=== PATIENT | female | born 1965 | race Hispanic/Latino ===

== ENCOUNTER 2017-05-10 13:30 | Emergency (ER) | payer OTHER ==
[2017-05-10] MEDS ORDERED: Sodium Chloride 0.9% 1,000 ML IV ONE (14:19)
[2017-05-10] MEDS ORDERED: Sodium Chloride 0.9% 1,000 ML ONE (14:32)
[2017-05-10 15:02] LABS: CHLORIDE 101 mmol/L (98-107); POTASSIUM 3.6 mmol/L (3.6-5.2); SODIUM 138 mmol/L (132-148)
[2017-05-10 15:04] LABS: ALKALINE PHOSPHATASE 159 U/L (38-126); AST/SGOT 14 U/L (14-36); BILIRUBIN,TOTAL 0.6 mg/dL (0.2-1.3); CARBON DIOXIDE 24 mmol/L (22-30); GFR AFRICAN-AMERICAN > 60
[2017-05-10 15:05] LABS: ALB/GLOB RATIO 1.4 (1.0-2.1); ALT/SGPT 27 U/L (9-52); BLOOD UREA NITROGEN 14 mg/dL (7-17); CALCIUM 8.1 mg/dl (8.6-10.4); GLUCOSE,RANDOM 153 mg/dL (65-105); TOTAL PROTEIN 6.8 g/dL (6.3-8.3)
[2017-05-10 15:09] LABS: BASO % 0.3 % (0.0-2.0); HEMATOCRIT 35.9 % (34.0-47.0); LYMPH # 1.1 K/uL (1.0-4.3); MEAN CELL VOLUME 85.4 fL (81.0-99.0); MEAN CORPUSCULAR HEMOGLOBIN 28.3 pg (27.0-31.0); MEAN CORPUSCULAR HGB CONC 33.2 g/dL (33.0-37.0); MEAN PLATELET VOLUME 10.3 fL (7.2-11.7); MONO # 0.2 K/uL (0.0-0.8); MONO % 2.8 % (0.0-10.0); RED CELL DISTRIBUTION WIDTH 14.3 % (11.5-14.5); WHITE BLOOD COUNT 8.3 K/uL (4.8-10.8)
--- NOTE | 2017-05-10 15:28 | C.PDOC ---
History Of Present Illness 51 yr old female with PMHx of schizophrenia and asthma, presnets to the ER with complaints of epigastric pain, nausea and several episodes of vomiting while at [facility] [employer]. Patient admits to not eating breakfast this morning. Denies fever, chest pain, SOB, diarrhea, dysuria, hematuria, weakness or numbness. Time Seen by Provider: 05/10/17 14:06 Chief Complaint (Nursing): Abdominal Pain History Per: Patient History/Exam Limitations: no limitations Onset/Duration Of Symptoms: Sudden Onset ([employer]OLOG[employer] while at [facility]) Current Symptoms Are (Timing): Still Present Location Of Pain/Discomfort: Epigastric Past Medical History Reviewed: Historical Data, Nursing Documentation, Vital Signs Vital Signs: Last Vital Signs Temp 97.8 F 05/10/17 15:58 Pulse 95 H 05/10/17 15:58 Resp 18 05/10/17 15:58 BP 170/80 H 05/10/17 15:58 Pulse Ox 98 05/10/17 15:58 - Medical History PMH: Asthma, Schizophrenia - [facility] Procedures TETANUS TOXOID ADMINIST (04/16/13) Family History: States: No Known Family Hx - Social History Hx Alcohol Use: No Hx Substance Use: No - Immunization History Hx Tetanus Toxoid Vaccination: No Hx Influenza Vaccination: No Hx Pneumococcal Vaccination: No Review Of Systems Except As Marked, All Systems Reviewed And Found Negative. Constitutional: Negative for: Fever Cardiovascular: Negative for: Chest Pain Respiratory: Negative for: Shortness of Breath Gastrointestinal: Positive for: Nausea, Vomiting (Several episodes), Abdominal Pain (Epigastric). Negative for: Diarrhea Genitourinary: Negative for: Dysuria, Hematuria Neurological: Negative for: Weakness, Numbness Physical Exam - Physical Exam Appears: Non-toxic, In Acute Distress (Mild discomfort) Skin: Warm, Dry, No Rash Head: Atraumatic, Normacephalic Eye(s): bilateral: Normal Inspection, PERRL, EOMI Oral Mucosa: Moist Neck: Normal, Normal ROM, Supple Chest: Symmetrical, No Tenderness Cardiovascular: Rhythm Regular, Other (Mild tachycardic) Respiratory: Normal Breath Sounds, No Rales, No Rhonchi, No Wheezing Gastrointestinal/Abdominal: Soft, Tenderness (Mild epigastric tenderness. ), No Guarding, No Rebound, Other ((-) Crenshaw signs. Mcburney's sign.) ED Course And Treatment - Laboratory Results Result Diagrams: 05/10/17 14:47 05/10/17 14:47 ECG: Interpreted By Me, Viewed By Me ECG Rhythm: Sinus Tachycardia ECG Interpretation: Normal Interpretation Of ECG: Normal axis. No acute ST/T wave changes. Rate From EC (BPM) O2 Sat by Pulse Oximetry: 95 (RA) Progress Note: PLAN: EKG, Lipase, CBC, CMP, HCG, Urinalysis, Zofran IVP, Sodium Chloride IV. Disposition Counseled Patient/Family Regarding: Studies Performed, Diagnosis, Need For Followup, Rx Given - Disposition Referrals: Yenny Bray MD [Staff Provider] - Disposition: HOME/ ROUTINE Disposition Time: 16:45 Condition: STABLE Additional Instructions: FOLLOW UP WITH YOUR DOCTOR IN 1-2 DAYS USE MEDICATIONS DIRECTED RETURN TO ED IF SYMPTOMS WORSEN Prescriptions: Ciprofloxacin [Cipro] 1 tab PO BID #14 tab Famotidine [Pepcid] 20 mg PO BID PRN #15 tab PRN Reason: abdominal Instructions: Acute Nausea and Vomiting (ED), Urinary Tract Infection in Women (ED) Print Language: CITIZ[place] - POA Present On Arrival: None - Clinical Impression Clinical Impression: UTI (urinary tract infection), Nausea, Vomiting, Epigastric abdominal pain - Scribe Statement The provider has reviewed the documentation as recorded by the Law Chu Provider Attestation: All medical record entries made by the Law were at my direction and personally dictated by me. I have reviewed the chart and agree that the record accurately reflects my personal performance of the history, physical exam, medical decision making, and the department course for this patient. I have also personally directed, reviewed, and agree with the discharge instructions and disposition.
[2017-05-10 15:59] VITALS: BP 170/80; PULSE 95; RESP 18; TEMP 97.8
[2017-05-10 16:27] LABS: RBC URINE 21 /hpf (0-3); URINE BILIRUBIN NEGATIVE (NEGATIVE); URINE BLOOD 1+ (NEGATIVE); URINE COLOR Yellow (YELLOW); URINE GLUCOSE (UA) 1+ mg/dL (Normal); URINE KETONE TRACE mg/dL (NEGATIVE); URINE LEUKOCYTE ESTERASE 2+ Leu/uL (Negative); URINE PROTEIN 1+ mg/dL (NEGATIVE); URINE UROBILINOGEN NORMAL mg/dL (0.2-1.0); WBC URINE 68 /hpf (0-5)
[2017-05-10 16:39] VITALS: O2SAT 95
--- NOTE | 2017-05-11 18:29 | CARD ---
APPROVED REPORT EKG Measurement Heart [id number] <Conclusion> Sinus tachycardia Nonspecific T wave abnormality Abnormal ECG
== END 2017-05-10 16:48 | disposition home or self-care (01) ==
LOC: C.ER 13:30
DX: N39.0 Urinary tract infection, site not specified (principal)
CPT/HCPCS: 80053; 81001; 83690; 84703; 85025; 87086; 93005; 96361; 96374; 99285; J2405; J7040

== ENCOUNTER 2017-07-17 06:25 | Day surgery (SDC) | payer OTHER ==
[2017-07-17 06:50] VITALS: BMI 27.0
[2017-07-17] MEDS ORDERED: Lidocaine Hydrochloride 5 ML INJ ONE (07:21)
[2017-07-17] MEDS ORDERED: Propofol 10 mg/ml Inj (20 ML) ONE (07:21)
[2017-07-17 08:59] VITALS: TEMP 97.5
[2017-07-17 10:00] VITALS: BP 155/89; PULSE 107; RESP 15; O2SAT 99
== END 2017-07-17 10:08 | disposition home or self-care (01) ==
LOC: C.ENDO 06:25
PROVIDERS: ATTEND Internal Medicine
DX: R10.13 Epigastric pain (principal); K59.09 Other constipation; K63.5 Polyp of colon; K29.50 Unspecified chronic gastritis without bleeding; K57.30 Diverticulosis of large intestine without perforation or abscess without bleeding; K64.8 Other hemorrhoids
CPT/HCPCS: 43239; 45380; 88305; 88313; 88342; J2704; J3010

== ENCOUNTER 2017-12-13 16:44 | Observation (INO) | payer OTHER ==
[2017-12-13 16:54] VITALS: BMI 24.9
--- NOTE | 2017-12-13 17:00 | C.PDOC ---
History Of Present Illness POSSIBLE CVA ONSET 1549. WITNESSED BY FAMILY, PT WALKING IN [employer] NOTED TO HAVE SUDDEN ONSET LEANING TO RIGHT BUT NO FALL. PT CO R SIDED WEAKNESS BUT NOW IMPROVED COMPARED TO PRIOR. PER EMS, RUE DRIFT 8 SECS EN ROUTE. NO SLURRED SPEECH, AO3. FAMILY STATES SP PSYCH MED DOSE CHANGE 2 WEEKS AGO. SINCE THEN, W INCR FREQ HEADACHES AND "NOT FEELING RIGHT". 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 NO TRAUMA EXAM MILD DIST NONTOXIC HEENT ATRAUM LUNGS CTA B/L NO W/R/R CV RRR ABD NEG EXT ATRAUM AROM WO DIFF NEURO SEE [facility] PSYCH CALM COOPERATIVE NO ACUTE PSYCHOSIS REMAINDER NEG Time Seen by Provider: 12/13/17 16:55 Chief Complaint (Nursing): Weakness/Neurological Deficit History Per: Patient, EMS, Family History/Exam Limitations: no limitations Onset/Duration Of Symptoms: Sudden Onset (1549) Past Medical History Reviewed: Historical Data, Nursing Documentation, Vital Signs Vital Signs: Last Vital Signs Temp 98.4 F 12/13/17 17:28 Pulse 104 H 12/13/17 17:28 Resp 15 12/13/17 17:28 BP 183/104 H 12/13/17 17:28 Pulse Ox 100 12/13/17 17:28 - Medical History PMH: Asthma, Gastritis, HTN, Hypercholesterolemia, Schizophrenia - [facility] Procedures TETANUS TOXOID ADMINIST (04/16/13) Family History: States: No Known Family Hx - Social History Hx Alcohol Use: No Hx Substance Use: No - Immunization History Hx Tetanus Toxoid Vaccination: No Hx Influenza Vaccination: No Hx Pneumococcal Vaccination: No Review Of Systems Except As Marked, All Systems Reviewed And Found Negative. Constitutional: Negative for: Fever Cardiovascular: Negative for: Chest Pain Respiratory: Negative for: Shortness of Breath Gastrointestinal: Negative for: Nausea, Vomiting Physical Exam - Physical Exam Appears: Non-toxic, In Acute Distress (Mild) Skin: Warm, Dry, No Rash Head: Atraumatic, Normacephalic Eye(s): bilateral: Normal Inspection, PERRL, EOMI Oral Mucosa: Moist Lips: Normal Appearing Neck: Normal, Normal ROM, Supple Chest: Symmetrical, No Tenderness Cardiovascular: Rhythm Regular, No Murmur Respiratory: Normal Breath Sounds, No Rales, No Rhonchi, No Stridor, No Wheezing Gastrointestinal/Abdominal: Normal Exam, Soft, No Tenderness, No Guarding, No Rebound Extremity: Normal ROM (w/o difficulty), No Swelling Neurological/Psych: Other (see NIH, calm, cooperative, no acute psychosis) ED Course And Treatment - Laboratory Results Result Diagrams: 12/13/17 17:29 12/13/17 17:29 - CT Scan/US CT - Head Other Rad Studies (CT/US): Read By Radiologist, Radiology Report Reviewed CT/US Interpretation: PROCEDURE: CT HEAD WITHOUT CONTRAST. HISTORY: Code Stroke. COMPARISON: None available. TECHNIQUE: Axial computed tomography images were obtained through the head/brain without intravenous contrast. Radiation dose: Total exam DLP = 1074.40 mGy-cm. This CT exam was performed using one or more of the following dose reduction techniques: Automated exposure control, adjustment of the mA and/or kV according to patient size, and/ or use of iterative reconstruction technique. FINDINGS: HEMORRHAGE: No intracranial hemorrhage. BRAIN: No mass effect or edema. No atrophy or chronic microvascular ischemic changes. VENTRICLES: Unremarkable. No hydrocephalus. CALVARIUM: Unremarkable. PARANASAL SINUSES: Unremarkable as visualized. No significant inflammatory changes. MASTOID AIR CELLS: Unremarkable as visualized. No inflammatory changes. OTHER FINDINGS: None. IMPRESSION: No acute intracranial abnormalities. No significant findings to account for the clinical presentation. __. Code stroke protocol: Study completed 16:59. Radiologist notified 17:02. Results conveyed verbally at 17:12. I discussed findings with the attending physician in the emergency department Dr. Mott. Interpretation finalized and available for review 17:14 NIHSS Stroke Scale - Date/Time Evaluation Performed Date Performed: 12/13/17 Time Performed: 17:13 When Was NIHSS Performed: Code Stroke - How Severe is the Stroke Level of Consciousness: 0=Alert LOC to Questions: 0=Both comments correct LOC to commands: 0=Obeys both correctly Best Gaze: 0=Normal Visual: 0=No visual loss Facial: 0=Normal Motor Arm - Left: 0=No drift Motor Arm - Right: 0=No drift Motor Leg - Left: 0=No drift Motor Leg - Right: 0=No drift Limb Ataxia: 0=Absent Sensory: 0=Normal Best Language: 0=No aphasia Dysarthia: 0=Normal articulation Extinction & Inattention (Neglect): 0=Normal, no object Score: 0 NIHSS Stroke Scale 2 - Date/Time Evaluation Performed Date Performed: 12/13/17 Time Performed: 17:49 When Was NIHSS Performed: Code Stroke Re-evaluation - How Severe is the Stroke Level of Consciousness: 0=Alert LOC to Questions: 0=Both comments correct LOC to commands: 0=Obeys both correctly Best Gaze: 0=Normal Visual: 0=No visual loss Facial: 0=Normal Motor Arm - Left: 0=No drift Motor Arm - Right: 0=No drift Motor Leg - Left: 0=No drift Motor Leg - Right: 0=No drift Limb Ataxia: 0=Absent Sensory: 0=Normal Best Language: 0=No aphasia Dysarthia: 0=Normal articulation Extinction & Inattention (Neglect): 0=Normal, no object Score: 0 Progress - Re-Evaluation Re-evaluation Note: 12/13/17 16:55 D/W DR OLIVERIO BEAR STROKE PRINCIPAL LIBRARIAN AWARE OF ER FINDINGS. NOT A TPA CANDIDATE @ THIS TIME. WILL CONSULT, ASA 12/13/17 17:13 D/W DR HUGGINS NO ACUTE FINDINGS 12/13/17 17:45 D/W DR José Miguel BRAY AWARE OF ER FINDINGS WILL ADMIT - Data Reviewed Data Reviewed: Lab, Diagnostic imaging, EKG, Old records - Critical Care Citical Care: Excluding Proc Time Critical Care Time: 90 minutes - Continuity of Care Discussed patient case with:: Patient Discussed pt. case with railroad design consultant/specialty: Neurology rTPA Inclusion/Exclusion - Refusal of Treatment Patient Refused Treatment: No - Inclusion Criteria for Altepase Patient is 18 years or Older: Yes The Clinical Diagnosis of Ischemic Stroke That is Causing a Potentially Disabling Neurological Deficit: No Time of Onset is Well Established to be Less Than 270 Minute Before Treatment Would Begin: Yes Risk/Benefit Discussed With Patient/Family Member Present: Yes - Exclusion Criteria for Altepase Uncontrolled Hypertension at Time of Treatment (Systolic BP above 185 or Diastolic BP above 110 mmHg): No Active Internal Bleeding: No Known Bleeding Diathesis Including but Not Limited to: Platelets Below 100,000/ mm,PTT Above 40 sec After Heparin Use, Current Use of Oral Anitcoagulant With INR Greater Than 1.7 or PT Greater Than 15 secs: No Evidence of an Intracranial Hemorrhage: No Evidence of Major Acute Infarct With Signs Greater Than 1/3 MCA Territory: No Suspicion of Subarachnoid Hemorrhage on Pretreatment Evaluation Even if CT Head Negative For Hemorrhage: No - Warning to TPA With Conditions Following Conditions Weighed Against Anticipated Benefit: Yes Condition: Stroke Serevity Too Mild, Rapid Improvement Medical Decision Making Medical Decision Making: PLAN: * CT - Head * CXR * EKG * Troponin * CBC * CMP * Aspirin PO Disposition Counseled Patient/Family Regarding: Studies Performed, Diagnosis - Disposition Disposition: HOSPITALIZED Disposition Time: 17:49 Condition: STABLE - POA Present On Arrival: None - Clinical Impression Clinical Impression: TIA (transient ischemic attack) - Scribe Statement The provider has reviewed the documentation as recorded by the Law Chu Provider Attestation: All medical record entries made by the Law were at my direction and personally dictated by me. I have reviewed the chart and agree that the record accurately reflects my personal performance of the history, physical exam, medical decision making, and the department course for this patient. I have also personally directed, reviewed, and agree with the discharge instructions and disposition. Decision To Admit - Pt Status Changed To: Hospital Disposition Of: Observation - . Bed Request Type: Telemetry Admitting Physician: Yenny Bray Patient Diagnosis: TIA (transient ischemic attack)
--- NOTE | 2017-12-13 17:15 | CT ---
PROCEDURE: CT HEAD WITHOUT CONTRAST. HISTORY: Code Stroke COMPARISON: None available. TECHNIQUE: Axial computed tomography images were obtained through the head/brain without intravenous contrast. Radiation dose: Total exam DLP = 1074.40 mGy-cm. This CT exam was performed using one or more of the following dose reduction techniques: Automated exposure control, adjustment of the mA and/or kV according to patient size, and/or use of iterative reconstruction technique. FINDINGS: HEMORRHAGE: No intracranial hemorrhage. BRAIN: No mass effect or edema. No atrophy or chronic microvascular ischemic changes. VENTRICLES: Unremarkable. No hydrocephalus. CALVARIUM: Unremarkable. PARANASAL SINUSES: Unremarkable as visualized. No significant inflammatory changes. MASTOID AIR CELLS: Unremarkable as visualized. No inflammatory changes. OTHER FINDINGS: None. IMPRESSION: No acute intracranial abnormalities. No significant findings to account for the clinical presentation. Code stroke protocol: Study completed 16:59 Radiologist notified 17:02 Results conveyed verbally at 17:12. I discussed findings with the attending physician in the emergency department Dr. Mott. Interpretation finalized and available for review 17:14
[2017-12-13 17:34] LABS: BASO % 0.4 % (0.0-2.0); LYMPH # 1.4 K/uL (1.0-4.3); LYMPH % 21.5 % (20.0-40.0); MEAN CELL VOLUME 87.6 fL (81.0-99.0); MEAN CORPUSCULAR HEMOGLOBIN 29.6 pg (27.0-31.0); MEAN CORPUSCULAR HGB CONC 33.8 g/dL (33.0-37.0); MONO # 0.3 K/uL (0.0-0.8); MONO % 4.7 % (0.0-10.0); NEUT # 4.7 K/uL (1.8-7.0); NEUT % 73.4 % (50.0-75.0); RBC 4.41 Mil/uL (3.80-5.20); WHITE BLOOD COUNT 6.4 K/uL (4.8-10.8)
[2017-12-13 17:46] LABS: ALB/GLOB RATIO 1.4 (1.0-2.1); ALBUMIN 4.2 g/dL (3.5-5.0); ALT/SGPT 28 U/L (9-52); AST/SGOT 21 U/L (14-36); BLOOD UREA NITROGEN 15 mg/dL (7-17); CALCIUM 8.7 mg/dl (8.6-10.4); GFR AFRICAN-AMERICAN > 60; GFR NON-AFRICAN AMERICAN > 60; HDL CHOLESTEROL 61 mg/dL (30-70)
[2017-12-13 17:56] LABS: PROTHROMBIN TIME 11.6 SECONDS (9.7-12.2)
[2017-12-13 17:57] LABS: LDL CHOLESTEROL 136 mg/dL (0-129)
--- NOTE | 2017-12-14 06:35 | HP ---
HISTORY OF PRESENT ILLNESS: This is a 52-year-old white female, who was brought to the Emergency Room with history of near syncope. The patient felt weakness on the right side and almost fell down. The patient denies having any slurred speech. Right-sided weakness present. The patient, in the Emergency Room, has no weakness. Family states that the patient's psych medication dose was changed, and since then she has the headache and not feeling right. REVIEW OF SYSTEMS: Respiratory system: Negative for shortness of breath. Cardiovascular system: Negative for chest pain. Gastrointestinal system: Negative for nausea, vomiting or abdominal pain. Central nervous system: As mentioned above. No urinary complaint. Psychiatrically, the patient has chronic schizophrenia. All other systems are negative. ALLERGIES: THE PATIENT IS ALLERGIC TO CODEINE, EGG AND PENICILLIN. FAMILY HISTORY: No known inherited disease. SOCIAL HISTORY: Nonsmoker, nonalcoholic, no IVDA. MEDICATIONS: The patient is not on any medical medications. PAST MEDICAL HISTORY: History of gastritis, hypercholesterolemia, asthma, and schizophrenia. PHYSICAL EXAMINATION: GENERAL: This is a 52-year-old white female, awake, alert, oriented, comfortable. VITAL SIGNS: Temperature 98.4, pulse 104, respirations 15 per minute, blood pressure 183/104 mmHg, pulse ox is 100% on room air. HEENT: Normal. NECK: JVP is flat. Carotids, no bruits. LUNGS: No rales, no wheezing. HEART: S1, S2 normal. No gallop. No murmur. ABDOMEN: Soft, nontender. No organomegaly. CENTRAL NERVOUS SYSTEM: No focal neurological deficits. No edema of the legs. LABORATORY DATA: Within normal limits. CT scan of the head is normal. IMPRESSION: Transient ischemic attack with right-sided weakness, accelerated hypertension, chronic schizophrenia. PLAN: The patient will be admitted to the floor. We will get neurological evaluation done. We will continue all the medication. Control blood pressure. Other workup as needed. Yenny Bray MD
[2017-12-14 08:29] VITALS: RESP 20
--- NOTE | 2017-12-14 08:38 | RAD ---
Chest x-ray single frontal view History: Code stroke. Comparison: 12/13/2017 Findings: No focal infiltrate or effusion. Small nodular density projecting over the right upper lung zone may represent small nodule and or granuloma versus confluence of shadows with ribs and vessels. Heart size within normal limits. Degenerative changes in the spine with paravertebral osteophytes. Impression: No focal infiltrate or effusion. Small nodular density projecting over the right upper lung zone may represent small nodule and or granuloma versus confluence of shadows with ribs and vessels.
[2017-12-14] MEDS: Enoxaparin 40 mg Syringe SC SCH (10:14)
--- NOTE | 2017-12-14 12:43 | CP.PCM.PN ---
Subjective - Date & Time of Evaluation Date of Evaluation: 12/14/17 Time of Evaluation: 12:41 - Subjective Subjective: condition stable. weak. s/p tia. Objective - Vital Signs/Intake and Output Vital Signs (last 24 hours): Temp Pulse Resp BP Pulse Ox 98.0 F 104 H 20 106/68 96 12/14/17 07:15 12/14/17 10:14 12/14/17 07:15 12/14/17 10:14 12/14/17 07:15 - Medications Medications: Current Medications Amlodipine Besylate (Norvasc) 5 mg PO DAILY [facility] Last Admin: 12/14/17 10:14 Dose: 5 mg Aspirin (Ecotrin) 81 mg PO DAILY [facility] Docusate Sodium (Colace) 100 mg PO TID [facility] Enoxaparin Sodium (Lovenox) 40 mg SC DAILY [facility] Last Admin: 12/14/17 10:14 Dose: 40 mg Pneumococcal Polyvalent Vaccine (Pneumovax 23 Vaccine) 0.5 ml IM .ONCE ONE Stop: 12/16/17 14:01 Rosuvastatin Calcium (Crestor) 20 mg PO HS [facility] - Labs Labs: 12/13/17 17:29 12/13/17 17:29 PT 11.6 SECONDS (9.7-12.2) 12/13/17 17:29 INR 1.0 12/13/17 17:29 APTT 32 SECONDS (21-34) 12/13/17 17:29 - Constitutional Appears: No Acute Distress, Chronically Ill - Eye Exam Eye Exam: PERRL - ENT Exam ENT Exam: Normal Exam - Neck Exam Neck Exam: Full ROM, Normal Inspection. absent: Lymphadenopathy - Respiratory Exam Respiratory Exam: Clear to Ausculation Bilateral, NORMAL BREATHING PATTERN - Cardiovascular Exam Cardiovascular Exam: REGULAR RHYTHM, +S1, +S2. absent: Murmur - GI/Abdominal Exam GI & Abdominal Exam: Soft, Normal Bowel Sounds. absent: Tenderness - Extremities Exam Extremities Exam: Full ROM, Normal Capillary Refill, Normal Inspection. absent : Joint Swelling, Pedal Edema - Back Exam Back Exam: NORMAL INSPECTION - Neurological Exam Neurological Exam: Alert, Awake, CN II-XII Intact, Normal Gait, Oriented x3 Assessment and Plan - Assessment and Plan (Free Text) Assessment: tia. htn. Plan: for neuro w/u. mri.
[2017-12-15 08:22] VITALS: O2SAT 97
--- NOTE | 2017-12-15 08:54 | MRI ---
PROCEDURE: MRI BRAIN WITHOUT CONTRAST HISTORY: TIA COMPARISON: Noncontrast head CT from 12/13/2017 TECHNIQUE: Multiplanar, multisequence MR images of the brain were obtained without intravenous contrast enhancement. FINDINGS: HEMORRHAGE: None DWI: No evidence of an acute or early subacute infarction. BRAIN PARENCHYMA: There are minimal chronic microangiopathic changes. There is no mass, mass effect or abnormal extra-axial fluid collection. There is no territorial infarction. VENTRICLES: There is moderate global parenchymal volume loss, advanced for the patient's age. CRANIUM: There is normal bone marrow signal pattern. ORBITS: Grossly unremarkable. PARANASAL SINUSES/MASTOIDS: Predominantly clear. VASCULAR SYSTEM: There are normal signal voids in the larger intracranial arteries. OTHER FINDINGS: None. IMPRESSION: No acute intracranial abnormality. Minimal chronic microangiopathic changes. Moderate global parenchymal volume loss, advanced for the patient's age.
--- NOTE | 2017-12-15 08:56 | MRI ---
PROCEDURE: Magnetic Resonance Angiography Brain HISTORY: TIA COMPARISON: None available. TECHNIQUE: 3D time of flight MR angiography of the intracranial arteries was performed. Rotating maximum intensity projection images were generated. FINDINGS: INTERNAL CAROTID ARTERIES: Normal flow related signal. The skull base, petrous, cavernous and supraclinoid segments are bilaterally widely patient. ANTERIOR CEREBRAL ARTERIES: Normal flow related signal. A1 and A2 segments are widely patent. Smaller distal branches unremarkable, as visualized. MIDDLE CEREBRAL ARTERIES: Normal flow related signal. M1 and M2 segments are widely patent. Perisylvian branches grossly symmetric. POSTERIOR CIRCULATION: Basilar Artery: Normal flow related signal. Distal Vertebral Arteries: Normal flow related signal. The right vertebral artery is hypoplastic, an anatomic variant. Posterior Cerebral Arteries: Normal flow related signal. Posterior Inferior Cerebellar Arteries: Normal flow related signal. ANEURYSM/ VASCULAR MALFORMATIONS: None. OTHER FINDINGS: None. IMPRESSION: No evidence of occlusion, definite significant stenosis or saccular aneurysm.
--- NOTE | 2017-12-15 09:01 | MRI ---
PROCEDURE: MR Angiography of the neck without contrast HISTORY: TIA COMPARISON: None available. TECHNIQUE: 3D [id number] angiography of the neck was performed. Rotating maximum intensity projection images of the cervical carotid and vertebral arteries were generated. The origins of the common carotid arteries were not visualized, which is a limitation inherent to the non-contrast time of flight technique. FINDINGS: RIGHT CAROTID ARTERIES: Common Carotid Artery: Normal. Carotid Bifurcation: Normal. Internal Carotid Artery:Normal. External Carotid Artery (proximal branches): Normal. LEFT CAROTID ARTERIES: Common Carotid Artery: Normal. Carotid Bifurcation: Normal. Internal Carotid Artery:Normal. External Carotid Artery (proximal branches): Normal. VERTEBRAL ARTERIES: Right Vertebral Artery: Normal. Left Vertebral Artery: Normal. The right vertebral artery is hypoplastic, an anatomic variant. OTHER FINDINGS: None. 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 No evidence of hemodynamically significant stenosis in the internal carotid arteries by NASCET criteria. A preliminary report was provided by [employer] [facility].
[2017-12-15] MEDS: Enoxaparin 40 mg Syringe SC SCH (11:25)
--- NOTE | 2017-12-15 13:03 | CP.PCM.PN ---
Subjective - Date & Time of Evaluation Date of Evaluation: 12/15/17 Time of Evaluation: 13:01 - Subjective Subjective: CONDITION SAME AND STABLE. TIA. BP CONTROLLED. Objective - Vital Signs/Intake and Output Vital Signs (last 24 hours): Temp Pulse Resp BP Pulse Ox 98.0 F 90 20 127/84 97 12/15/17 08:21 12/15/17 11:23 12/15/17 08:21 12/15/17 11:23 12/15/17 08:21 - Medications Medications: Current Medications Amlodipine Besylate (Norvasc) 5 mg PO DAILY [facility] Last Admin: 12/15/17 11:24 Dose: 5 mg Aspirin (Ecotrin) 81 mg PO DAILY [facility] Last Admin: 12/15/17 11:24 Dose: 81 mg Docusate Sodium (Colace) 100 mg PO TID [facility] Last Admin: 12/15/17 11:24 Dose: 100 mg Enoxaparin Sodium (Lovenox) 40 mg SC DAILY [facility] Last Admin: 12/15/17 11:25 Dose: 40 mg Pneumococcal Polyvalent Vaccine (Pneumovax 23 Vaccine) 0.5 ml IM .ONCE ONE Stop: 12/16/17 14:01 Rosuvastatin Calcium (Crestor) 20 mg PO HS [facility] Last Admin: 12/14/17 21:10 Dose: 20 mg - Labs Labs: 12/13/17 17:29 12/13/17 17:29 PT 11.6 SECONDS (9.7-12.2) 12/13/17 17:29 INR 1.0 12/13/17 17:29 APTT 32 SECONDS (21-34) 12/13/17 17:29 - Constitutional Appears: No Acute Distress - Eye Exam Pupil Exam: PERRL - ENT Exam ENT Exam: Normal Exam - Neck Exam Neck Exam: Full ROM, Normal Inspection. absent: Lymphadenopathy - Respiratory Exam Respiratory Exam: Clear to Ausculation Bilateral, NORMAL BREATHING PATTERN - Cardiovascular Exam Cardiovascular Exam: REGULAR RHYTHM, +S1, +S2. absent: Murmur - GI/Abdominal Exam GI & Abdominal Exam: Soft, Normal Bowel Sounds. absent: Tenderness - Extremities Exam Extremities Exam: Full ROM, Normal Capillary Refill, Normal Inspection. absent : Joint Swelling, Pedal Edema - Back Exam Back Exam: NORMAL INSPECTION - Neurological Exam Neurological Exam: Alert, Awake, CN II-XII Intact, Normal Gait, Oriented x3 Assessment and Plan - Assessment and Plan (Free Text) Assessment: TIA HTN. Plan: MRAHEAD, MRA NECK AND MRI BRAIN GROSSLY WNL. DISCUSS WITH NEUROLOGY FOR POSSIBLE D/C. PT OUT PT.
--- NOTE | 2017-12-15 13:11 | PCM.PSYCH ---
Initial Psychiatric Evaluation - Initial Psychiatric Evaluation Type of Admission: Voluntary Legal Status: Capacity Chief Complaint (in patient's own words): "I have schizophrenia and my medications were recently changed " History of Present Illness and Precipitating Events: Psych consult: Hx of Schizophrenia/recent med change The pt is seen, chart reviewed, case discussed with staff. Patient is a 52 year old female who we were consulted for. She is a with 2 daughters. She is currently living with her eldest daughter. She has a history of schizophrenia that is currently well controlled with current medications. Patient states she has regular follow up with a psychiatrist and she attends a day program at [facility]. She recently saw him to adjust her Haldol dose from 10mg to 20mg as she began having auditory hallucinations again. She currently denies any hallucinations, paranoia , depression, anxiety, S/I. She is also on Clozapine 500 mg which she will resume. Of note, health science writer called her program with her permission and learned that she had not been on haldol since last summer as clozapine has been started. She also takes cogentin. She denies using drugs, alcohol, or tobacco products. Psych Hx: Schizophrenia, admissions in the past, no jerzy attempt PMH: Asthma, Hyperlipidemia, HTN Family Psych Hx: Daughter has schizophrenia Current Medications: Active Medications Generic Name Dose Route Start Last Admin Trade Name Judy PRN Reason Stop Dose Admin Amlodipine Besylate 5 mg 12/14/17 10:00 12/15/17 11:24 Norvasc PO 5 mg DAILY ALYSSIA Administration Aspirin 81 mg 12/14/17 12:45 12/15/17 11:24 Ecotrin PO 81 mg DAILY ALYSSIA Administration Docusate Sodium 100 mg 12/14/17 14:00 12/15/17 11:24 Colace PO 100 mg TID ALYSSIA Administration Enoxaparin Sodium 40 mg 12/14/17 10:00 12/15/17 11:25 Lovenox SC 40 mg DAILY ALYSSIA Administration Pneumococcal Polyvalent Vaccine 0.5 ml 12/16/17 14:00 Pneumovax 23 Vaccine IM 12/16/17 14:01 .ONCE ONE Rosuvastatin Calcium 20 mg 12/14/17 22:00 12/14/17 21:10 Crestor PO 20 mg HS ALYSSIA Administration Past Psychiatric History - Past Psychiatric History Previous Treatment History: Inpatient Pertinent Medical Hx (Current Medical&Sleep Prob, Allergies): Allergies Allergy/AdvReac Type Severity Reaction Status Date / Time codeine Allergy VOMITING Unverified 12/14/17 08:18 EGG AdvReac Severe VOMITING Unverified 12/14/17 02:18 Penicillins AdvReac Severe DIARRHEA Unverified 12/14/17 08:18 Clozapine [Fazaclo] 5 tab PO HS 06/23/16 FLUoxetine [Fluoxetine HCl] 20 mg PO QAM 06/23/16 Albuterol HFA [Ventolin HFA 90 mcg/actuation (8 g)] 2 puff IH [id number] PRN Benztropine [Benztropine Mesylate] 1 mg PO QAM 08/15/16 Haloperidol [Haldol] 3 tab PO HS 08/15/16 Atorvastatin [Lipitor] 1 tab PO DAILY 07/17/17 Losartan/Hydrochlorothiazide [Losartan-Hctz 50-12.5 mg Tab] 1 tab PO DAILY 07/17 Omeprazole 1 tab PO DAILY 07/17/17 Ondansetron [Zofran Tab] 1 tab PO PRN PRN 07/17/17 Ranitidine HCl 1 tab PO BID 07/17/17 Review of Systems - Review of Systems All systems: reviewed and no additional remarkable complaints except - Neurological Neurological: UNREMARKABLE - Psychiatric Psychiatric: Anxiety. absent: Auditory Hallucinations, Depression, Hallucinations, Homicidal Ideation, Paranoia, Suicidal Ideation, Visual Hallucinations Mental Status Examination - Personal Presentation Personal Presentation: Looks stated age (somewhat oddly-related.) - Affect Affect: Blunted - Motor Activity Motor Activity: Calm - Reliability in Providing Information Reliability in Providing Information: Good - Speech Speech: Coherent (but slowed and paused.) - Mood Mood: Neutral - Formal Thought Process Formal Thought Process: No Impairment - Cognitive Functions Orientation: Person, Place, Situation, Time Sensorium: Alert (but slow in responses and moves. ) Attention/Concentration: Easily distracted Abstract Thinking: [place] Estimate of Intelligence: Below average (likely due to chronic schizophrenia, not congenital) Judgement: Intact, as evidence by: Insight regarding need for hospitalization Memory: Recent intact, as evidence by: Ability to recall events of the day, Remote impaired as evidenced by: Inability to recall historical events - Risk Risk: Diminished functioning - Strength & Assets Inventory Strength & Assets Inventory: Family support, Cooperative - Limitations Limitations: Other DSM 5 DX - DSM 5 DSM 5 Diagnosis: Schizophrenia-Chronic - Recommended/Plan of Treatment Treatment Recommendations and Plan of Treatment: Continue Clozapine 500mg/d and cogentin 3 mg/d and prozac 20 mg/d Individual therapy within day program Psychoeducation and support given Encourage compliance with meds (she has a history of irregular use) and after care Encourage f/u with outpatient program Teach healthy lifestyle methods, i.e. diet, exercise, meditation 34min
--- NOTE | 2017-12-15 15:10 | CP.PCM.PN ---
Subjective - Date & Time of Evaluation Date of Evaluation: 12/15/17 Time of Evaluation: 15:10 - Subjective Subjective: PATIENT WAS ADMITTED FOR TIA; LAY IN BED AAOX3 DENIES ANY HEADACHE DIZZINESS, CHEST PAIN NAUSEA OR VOMITING; NO SIGNOF DISTRESS NOTED Objective - Vital Signs/Intake and Output Vital Signs (last 24 hours): Temp Pulse Resp BP Pulse Ox 98.0 F 100 H 20 127/84 97 12/15/17 08:21 12/15/17 12:00 12/15/17 08:21 12/15/17 11:23 12/15/17 08:21 - Medications Medications: Current Medications Amlodipine Besylate (Norvasc) 5 mg PO DAILY [facility] Last Admin: 12/15/17 11:24 Dose: 5 mg Aspirin (Ecotrin) 81 mg PO DAILY [facility] Last Admin: 12/15/17 11:24 Dose: 81 mg Docusate Sodium (Colace) 100 mg PO TID [facility] Last Admin: 12/15/17 13:32 Dose: 100 mg Enoxaparin Sodium (Lovenox) 40 mg SC DAILY [facility] Last Admin: 12/15/17 11:25 Dose: 40 mg Pneumococcal Polyvalent Vaccine (Pneumovax 23 Vaccine) 0.5 ml IM .ONCE ONE Stop: 12/16/17 14:01 Rosuvastatin Calcium (Crestor) 20 mg PO [facility] Last Admin: 12/14/17 21:10 Dose: 20 mg - Labs Labs: 12/13/17 17:29 12/13/17 17:29 PT 11.6 SECONDS (9.7-12.2) 12/13/17 17:29 INR 1.0 12/13/17 17:29 APTT 32 SECONDS (21-34) 12/13/17 17:29 Assessment and Plan - Assessment and Plan (Free Text) Assessment: PATIENT IS SEEN AND EXAMINED AT THE BEDSIDE LUNG SOUND CLEAR AND PT EVAL RECOMMEND HOME PT DUE TO 1 SIDE WEAKNESS NOTED WHEN PATIENT AMBULATE STROKE EDUCATION PROVIDED PER NEURO DR ROSENBERG, PATIENT WILL BE DC ON ASPIRIN FOR NOW DISCUSS WITH DR José Miguel GOMES WHO AGREE WITH THE PLAN FOLLOW UP WITH DR José Miguel GOMES IN 1-2 WEEK AT HIS OFFICE ---CALL FOR APPOINTMENT FOLLOW UP WITH YOUR PSYCHIATRIST OUT PATIENT ---CALL TO MAKE APPOINTMENT CONTINUE ALL YOUR HOME MEDICATION DIRECTED ACTIVITY DIRECTED PHYSICAL THERAPY 3-5 TIMES PER WEEK FOR AT LEAST 2 WEEKS NEW PRESCRIPTION GIVEN : ASPIRIN 81 MG BY MOUTH DAILY COLACE 100 MG BY MOUTH THREE TIMES A DAY FOR CONSTIPATION CALL DR José Miguel GOMES OR GO TO THE EMERGENCY IF SYMPTOMS RETURN OR WORSENING DISCUSS WITH PATIENT WHO AGREE AND VERBALIZED UNDERSTANDING
--- NOTE | 2017-12-15 15:19 | CP.PCM.CON ---
History of Present Illness - History of Present Illness History of Present Illness: Mrs. Jewell is a 52-year-old woman with a past medical history of HTN, HLD, who was shopping with her daughter and sister, when she felt unstable and started to lean toward the right. She was helped up by several people and did not fall or lose consciousness. She states that this has never happened to her before. According to the home meds, the patient is on Haldol and Clozapine with some changes in the medications recently. MRI brain and MRA of the head/neck were essentially normal. Review of Systems - Review of Systems All systems: reviewed and no additional remarkable complaints except Past Patient History - Infectious Disease Hx of Infectious Diseases: None - Past Medical History & Family History Past Medical History?: Yes - Past Social History Smoking Status: Never Smoked - CARDIAC Hx Hypercholesterolemia: Yes Hx Hypertension: Yes - PULMONARY Hx Chronic Obstructive Pulmonary Disease (COPD): Yes (ASTHMA) - NEUROLOGICAL Hx Neurological Disorder: No - HEENT Hx HEENT Problems: No - RENAL Hx Chronic Kidney Disease: No - ENDOCRINE/METABOLIC Hx Endocrine Disorders: No - HEMATOLOGICAL/ONCOLOGICAL Hx Blood Disorders: No - INTEGUMENTARY Hx Dermatological Problems: No - MUSCULOSKELETAL/RHEUMATOLOGICAL Hx Arthritis: Yes (BACK) - GASTROINTESTINAL Hx Gastritis: Yes - GENITOURINARY/GYNECOLOGICAL Hx Genitourinary Disorders: No - PSYCHIATRIC Hx Schizophrenia: Yes Hx Substance Use: No - SURGICAL HISTORY Hx Surgeries: Yes Hx Section: Yes (x2) - ANESTHESIA Hx Anesthesia: Yes Hx Anesthesia Reactions: No Hx Malignant Hyperthermia: No Meds Home Medications: Home Medication List Medication Instructions Recorded Confirmed Type Aspirin [Ecotrin] 81 mg PO DAILY #30 tabec 12/15/17 Rx Docusate [Colace] 100 mg PO TID #90 cap 12/15/17 Rx Allergies/Adverse Reactions: Allergies Allergy/AdvReac Type Severity Reaction Status Date / Time codeine Allergy VOMITING Unverified 12/14/17 08:18 EGG AdvReac Severe VOMITING Unverified 12/14/17 02:18 Penicillins AdvReac Severe DIARRHEA Unverified 12/14/17 08:18 - Medications Medications: Current Medications Amlodipine Besylate (Norvasc) 5 mg PO DAILY [facility] Last Admin: 12/15/17 11:24 Dose: 5 mg Aspirin (Ecotrin) 81 mg PO DAILY [facility] Last Admin: 12/15/17 11:24 Dose: 81 mg Docusate Sodium (Colace) 100 mg PO TID [facility] Last Admin: 12/15/17 13:32 Dose: 100 mg Enoxaparin Sodium (Lovenox) 40 mg SC DAILY [facility] Last Admin: 12/15/17 11:25 Dose: 40 mg Pneumococcal Polyvalent Vaccine (Pneumovax 23 Vaccine) 0.5 ml IM .ONCE ONE Stop: 12/16/17 14:01 Rosuvastatin Calcium (Crestor) 20 mg PO HS [facility] Last Admin: 12/14/17 21:10 Dose: 20 mg Physical Exam - Constitutional Appears: Well - Head Exam Head Exam: ATRAUMATIC, NORMAL INSPECTION, NORMOCEPHALIC - Eye Exam Eye Exam: EOMI, Normal appearance, PERRL - ENT Exam ENT Exam: Mucous Membranes Moist, Normal Exam - Neck Exam Neck exam: Positive for: Normal Inspection - Respiratory Exam Respiratory Exam: Clear to Auscultation Bilateral, NORMAL BREATHING PATTERN - Cardiovascular Exam Cardiovascular Exam: REGULAR RHYTHM, +S1, +S2 - Rectal Exam Rectal Exam: Deferred - Extremities Exam Extremities exam: Positive for: normal inspection - Back Exam Back exam: NORMAL INSPECTION - Neurological Exam Neurological exam: Alert, CN II-XII Intact, Normal Gait, Oriented x3, Reflexes Normal - Psychiatric Exam Psychiatric exam: Normal Affect, Normal Mood Results - Vital Signs Recent Vital Signs: Last Vital Signs Temp 98.0 F 12/15/17 08:21 Pulse 100 H 12/15/17 12:00 Resp 20 12/15/17 08:21 BP 127/84 12/15/17 11:23 Pulse Ox 97 12/15/17 08:21 - Labs Result Diagrams: 12/13/17 17:29 12/13/17 17:29 Labs: Laboratory Results - last 24 hr 12/14/17 12/14/17 12/15/17 16:38 21:00 11:16 POC Glucose (mg/dL) 130 H 122 H 85 Assessment & Plan (1) TIA (transient ischemic attack) Assessment and Plan: This could have also been caused due to changes in medications. Work-up was negative for major underlying causes for stroke. I recommend the followin. Telemetry 2. PT/OT eval 3. Aspirin 81 mg daily, and Crestor 20 mg daily for stroke prevention 4. Hydration with water 2-3 liters daily 5. Smoking cessation 6. Follow up with outpatient for risk factor management Thank you. Status: Acute Priority: High
[2017-12-15 15:46] VITALS: BP 117/75; PULSE 105; TEMP 97.8
[2017-12-15] MEDS ORDERED: Pneumococcal 23-Valent Vaccine IM ONE (16:00)
--- NOTE | 2017-12-15 23:14 | CARD ---
APPROVED REPORT EXAM: Two-dimensional and M-mode echocardiogram with Doppler and color Doppler. Other Information Quality : GoodRhythm : INDICATION CVA/TIA RISK FACTORS Hypertension Hyperlipidemia 2D DIMENSIONS IVSd0.9 (0.7-1.1cm)LVDd4.4 (3.9-5.9cm) PWd0.9 (0.7-1.1cm)LVDs2.5 (2.5-4.0cm) FS (%) 44.2 %LVEF (%)75.6 (>50%) M-Mode DIMENSIONS Left Atrium (MM)3.13 (2.5-4.0cm)Aortic Root2.66 (2.2-3.7cm) Aortic Cusp Exc.1.70 (1.5-2.0cm) Mitral Valve MV E Uywoxpkv79.3cm/sMV A Iynemucb758.9cm/sE/A ratio0.4 TDI E/Lateral E'0.0E/Medial E'0.0 LEFT VENTRICLE The left ventricle is normal size. There is normal left ventricular wall thickness. Left ventricle systolic function is mildly impaired. The Ejection Fraction is 50-55%. There is global hypokinesis of the left ventricle. Transmitral Doppler flow pattern is Grade I-abnormal relaxation pattern. There is no ventricular septal defect visualized. RIGHT VENTRICLE The right ventricle is normal size. The right ventricular systolic function is normal. ATRIA The left atrium is mildly dilated. The right atrium size is normal. AORTIC VALVE The aortic valve is mildly sclerotic. The aortic valve is tri-cuspid. No aortic regurgitation is present. There is no aortic valvular stenosis. MITRAL VALVE The mitral valve is normal in structure. There is no evidence of mitral valve prolapse. There is no mitral valve regurgitation noted. TRICUSPID VALVE The tricuspid valve is normal in structure. There is trace tricuspid regurgitation. Right ventricular systolic pressure is estimated at less than 30 mmHg. There is no pulmonary hypertension. PULMONIC VALVE The pulmonary valve is normal in structure. There is trace pulmonic valvular regurgitation. GREAT VESSELS The aortic root is normal in size. The ascending aorta is normal in size. The IVC is normal in size and collapses >50% with inspiration. PERICARDIAL EFFUSION There is no pericardial effusion. <Conclusion> Left ventricle systolic function is mildly impaired. The Ejection Fraction is 50-55%. There is global hypokinesis of the left ventricle. Transmitral Doppler flow pattern is Grade I-abnormal relaxation pattern.
[2017-12-16] MEDS ORDERED: Pneumococcal 23-Valent Vaccine IM ONE (14:00)
== END 2017-12-15 16:53 | disposition home or self-care (01) ==
LOC: C.ER 16:44 → C.9E 17:50 → C.5S 23:16
PROVIDERS: ADMIT Internal Medicine; ATTEND Internal Medicine
DX: R53.1 Weakness (principal); I10 Essential (primary) hypertension; K59.00 Constipation, unspecified; Z86.73 Personal history of transient ischemic attack (TIA), and cerebral infarction without residual deficits; E78.5 Hyperlipidemia, unspecified; F20.9 Schizophrenia, unspecified
CPT/HCPCS: 36415; 70450; 70544; 70547; 70551; 71045; 80053; 80061; 82948; 83036; 84484; 85025; 85610; 85651; 85730; 86140; 86850; 86900; 90471; 90732; 93306; 97116; 97162; 97166; 97530; 99285; G0378; G8978; G8979; G8987; G8988; J1650; J2060

== ENCOUNTER 2019-01-03 12:48 | Inpatient (IN) | payer OTHER ==
[2019-01-03 12:51] VITALS: BMI 22.4
[2019-01-03] MEDS ORDERED: Iodixanol 320 MG/ML 100 ML BOTTLE IV ONE (12:58)
--- NOTE | 2019-01-03 13:01 | C.PDOC ---
History Of Present Illness 53 year old female with PMHx of HTN, HLD, COPD, brought in by BLS for evaluation of possible stroke. Per EMS, they were called after the patient fell and patient was noted to have right-sided facial droop and was leaning toward the right at that time. On arrival patient is AAOx3, responding appropriately to questions. States she noticed her speech was slurred and her right arm began feeling weak around 11:00pm last night, upon returning home from a green party. She denies any visual loss, numbness, lower extremity weakness, chest pain, SOB, or dizziness. Of note, patient has a history of stroke 1 year ago per EMS. Patient was seen here on 12/13/18 for right-sided weakness and admitted for TIA. PMD- V Asa Time Seen by Provider: 01/03/19 12:50 Chief Complaint (Nursing): Weakness/Neurological Deficit History Per: Patient History/Exam Limitations: no limitations Onset/Duration Of Symptoms: Hrs (14) Current Symptoms Are (Timing): Still Present Seizure Or Post-ictal Symptoms: None Fall Associated With With Symptoms: Yes Additional History Per: EMS Past Medical History Reviewed: Historical Data, Nursing Documentation, Vital Signs Vital Signs: Last Vital Signs Temp 98.3 F 01/03/19 12:53 Pulse 106 H 01/03/19 12:53 Resp 18 01/03/19 12:53 BP 148/91 H 01/03/19 12:53 Pulse Ox 97 01/03/19 12:53 - Medical History PMH: Arthritis (BACK), Asthma, COPD (ASTHMA), Gastritis, HTN, Hypercholesterolemia, Schizophrenia, TIA (12/03/17) Denies: Chronic Kidney Disease Surgical History: - [facility] Procedures TETANUS TOXOID ADMINIST (04/16/13) Family History: States: Unknown Family Hx - Social History Hx Alcohol Use: No Hx Substance Use: No - Immunization History Hx Tetanus Toxoid Vaccination: No Hx Influenza Vaccination: No Hx Pneumococcal Vaccination: No Review Of Systems Except As Marked, All Systems Reviewed And Found Negative. Constitutional: Negative for: Fever, Chills Eyes: Negative for: Vision Change ENT: Negative for: Nose Congestion, Throat Pain Cardiovascular: Negative for: Chest Pain Respiratory: Negative for: Shortness of Breath Gastrointestinal: Negative for: Nausea, Vomiting, Diarrhea Musculoskeletal: Negative for: Arm Pain, Leg Pain Neurological: Positive for: Weakness (right upper extremity weakness), Change in Speech (slurred), Other (Right facial droop). Negative for: Numbness, Confusion, Altered Mental Status, Dizziness Physical Exam - Physical Exam Appears: Non-toxic, No Acute Distress Skin: Normal Color, Warm, Dry Head: Atraumatic, Normacephalic Eye(s): bilateral: Normal Inspection, PERRL, EOMI Oral Mucosa: Moist Neck: Normal ROM Chest: Symmetrical Cardiovascular: Rhythm Regular, No Murmur Respiratory: Normal Breath Sounds, No Rales, No Rhonchi, No Wheezing Gastrointestinal/Abdominal: Soft, No Tenderness, No Distention Extremity: Right: Other (Right upper extremity pronator drift), Bilateral: Atraumatic, Normal Color And Temperature Pulses: Left Dorsalis Pedis: Normal, Right Dorsalis Pedis: Normal Neurological/Psych: Oriented x3, Normal Cranial Nerves, Other (Slurred speech) Other Neurological Findings: Facial Palsy (right facial droop) Extremity: Left: No Drift ED Course And Treatment - Laboratory Results Result Diagrams: 01/03/19 13:59 01/03/19 13:59 O2 Sat by Pulse Oximetry: 97 (RA) Pulse Ox Interpretation: Normal - CT Scan/US CT Head Other Rad Studies (CT/US): Read By Radiologist, Radiology Report Reviewed CT/US Interpretation: Accession No. : [id number]. Patient Name / ID : JANINA QUINTANA / [id number]. Exam Date : 01/03/2019 13:11:27 ( Approved ). Study Comment : Sex / Age : F / 53Y. Creator : Stephanie Ron. Dictator : Jay Jay Platt MD. Home Health Care Physician : Trust Advisor : Jay Jay Platt MD. Approver2 : Report Date : 01/03/2019 13:20:58. My Comment : . Date of service: 01/03/2019. PROCEDURE: CT HEAD WITHOUT CONTRAST. HISTORY: Code Stroke. COMPARISON: 12/13/2017. TECHNIQUE: Axial computed tomography images were obtained through the head/brain without intravenous contrast. Radiation dose: Total exam DLP = 1113.71 mGy-cm. This CT exam was performed using one or more of the following dose reduction techniques: Automated exposure control, adjustment of the mA and/or kV according to patient size, and/or use of iterative reconstruction technique. FINDINGS: HEMORRHAGE: No intracranial hemorrhage. BRAIN: No mass effect or edema. No atrophy or chronic microvascular ischemic changes. VENTRICLES: Unremarkable. No hydrocephalus. CALVARIUM: Unremarkable. PARANASAL SINUSES: Unremarkable as visualized. No significant inflammatory changes. MASTOID AIR CELLS: Unremarkable as visualized. No inflammatory changes. OTHER FINDINGS: None. IMPRESSION: Normal CT of the Head. No intracranial hemorrhage. No evidence of acute infarct. The findings in this examination were discussed by telephone with Dr. Talavera at 1:25 p.m. on 01/03/2019. NIHSS Stroke Scale 2 - Date/Time Evaluation Performed Date Performed: 01/03/19 Time Performed: 12:50 When Was NIHSS Performed: Baseline - How Severe is the Stroke Level of Consciousness: 0=Alert LOC to Questions: 0=Both comments correct LOC to commands: 0=Obeys both correctly Best Gaze: 0=Normal Visual: 0=No visual loss Facial: 1=Minor asymmetry Motor Arm - Left: 0=No drift Motor Arm - Right: 1=Drift noted before 10 sec Motor Leg - Left: 0=No drift Motor Leg - Right: 0=No drift Limb Ataxia: 0=Absent Sensory: 0=Normal Best Language: 0=No aphasia Dysarthia: 1=Mild to moderate slurring Extinction & Inattention (Neglect): 0=Normal, no object Score: 3 Medical Decision Making Medical Decision Makin:51 Code Stroke initiated, orders placed. Initial Plan: --CT Head --CTA Head/Neck --EKG --Chest x-ray --CMP, CBC, lipids, trop, coags --Pending stroke team consult Records reviewed: Patient was seen in the ED on 12/13/18 for complaints of right-sided weakness and leaning to the right. CT was negative and patient was admitted for TIA. MRI brain and MRA of the head/neck were essentially normal. Patient was then discharged home on 12/15 with plan for physical therapy, and started on 81mg aspirin daily. Progress/Updates: 13:25 Received call from radiology, CT Head is negative. Case discussed with Dr. Lundberg, agreed to manage patient medically. She will come to evaluate patient in the ED. 13:43 Dr. Lundberg evaluated patient at bedside. NIH 0. Recommends patient be given aspirin and admit to PMD. Patient's PMD is Dr. Yenny Bray. Attempted call through doctor's office, who notes Dr. José Miguel Bray is out of town, and his admissions are currently covered by Dr. Montoya. Paged Dr. Combs, who states he does not admit. Will admit patient to medicine on-call, Dr. Shobha Bray. 14:[address] Bray, patient accepts admission. Disposition Discussed With Dr.: Dary Bray - Disposition Disposition: HOSPITALIZED Disposition Time: 14:35 Condition: GUARDED - POA Present On Arrival: None - Clinical Impression Clinical Impression: TIA (transient ischemic attack) - Scribe Statement The provider has reviewed the documentation as recorded by the Law Garcia Provider Attestation: All medical record entries made by the Clayibe were at my direction and personally dictated by me. I have reviewed the chart and agree that the record accurately reflects my personal performance of the history, physical exam, medical decision making, and the department course for this patient. I have also personally directed, reviewed, and agree with the discharge instructions and disposition. Decision To Admit - Pt Status Changed To: Hospital Disposition Of: Observation - . Bed Request Type: Telemetry Admitting Physician: Dary Bray Patient Diagnosis: TIA (transient ischemic attack)
--- NOTE | 2019-01-03 13:30 | CT ---
Date of service: 01/03/2019 PROCEDURE: CT HEAD WITHOUT CONTRAST. HISTORY: Code Stroke COMPARISON: 12/13/2017 TECHNIQUE: Axial computed tomography images were obtained through the head/brain without intravenous contrast. Radiation dose: Total exam DLP = 1113.71 mGy-cm. This CT exam was performed using one or more of the following dose reduction techniques: Automated exposure control, adjustment of the mA and/or kV according to patient size, and/or use of iterative reconstruction technique. FINDINGS: HEMORRHAGE: No intracranial hemorrhage. BRAIN: No mass effect or edema. No atrophy or chronic microvascular ischemic changes. VENTRICLES: Unremarkable. No hydrocephalus. CALVARIUM: Unremarkable. PARANASAL SINUSES: Unremarkable as visualized. No significant inflammatory changes. MASTOID AIR CELLS: Unremarkable as visualized. No inflammatory changes. OTHER FINDINGS: None. IMPRESSION: Normal CT of the Head. No intracranial hemorrhage. No evidence of acute infarct. The findings in this examination were discussed by telephone with Dr. Talavera at 1:25 p.m. on 01/03/2019.
--- NOTE | 2019-01-03 13:55 | CP.PCM.CON ---
History of Present Illness - History of Present Illness History of Present Illness: Neurology Consult Note for Dr. Lundberg HPI: Patient is a 53 year old female with history of hypertension, asthma, hyperlipidemia who states she was at her program today when she felt her right side felt weak and she fell on her right side landing on her buttocks earlier today. She states she recently had a stroke a year ago, and she was recently seen here a few weeks ago for right sided weakness and admitted for TIA. She denies changes in vision, hearing, numbness, tingling, chest pain, shortness of breath, nausea, vomiting. She states she wears dentures usually, but forgot them at home. PMH: hypertension, asthma, hyperlipidemia, stroke PSH: C sections x2 Allergies: PCN Social hx: lives with daughter. denies history of tobacco, alcohol or drug use. Used to work at [employer]. Uses a walker. Wears dentures. Review of Systems - Constitutional Constitutional: absent: Chills, Fever - EENT Eyes: absent: Blurred Vision, Change in Vision Ears: absent: Decreased Hearing Nose/Mouth/Throat: absent: Sore Throat - Cardiovascular Cardiovascular: absent: Chest Pain, Dyspnea - Respiratory Respiratory: absent: Cough, Dyspnea - Gastrointestinal Gastrointestinal: absent: Abdominal Pain, Nausea, Vomiting - Neurological Neurological: absent: Abnormal Hearing, Abnormal Movements, Abnormal Speech, Confusion, Convulsions, Dizziness, Focal Weakness, Headaches Past Patient History - Infectious Disease Hx of Infectious Diseases: None - Past Medical History & Family History Past Medical History?: Yes - Past Social History Smoking Status: Never Smoked - CARDIAC Hx Hypercholesterolemia: Yes Hx Hypertension: Yes - PULMONARY Hx Asthma: Yes Hx Chronic Obstructive Pulmonary Disease (COPD): Yes (ASTHMA) - NEUROLOGICAL Hx Transient Ischemic Attacks (TIA): Yes (12/03/17) - HEENT Hx HEENT Problems: No - RENAL Hx Chronic Kidney Disease: No - ENDOCRINE/METABOLIC Hx Endocrine Disorders: No - HEMATOLOGICAL/ONCOLOGICAL Hx Blood Disorders: No - INTEGUMENTARY Hx Dermatological Problems: No - MUSCULOSKELETAL/RHEUMATOLOGICAL Hx Arthritis: Yes (BACK) - GASTROINTESTINAL Hx Gastritis: Yes - GENITOURINARY/GYNECOLOGICAL Hx Genitourinary Disorders: No - PSYCHIATRIC Hx Schizophrenia: Yes Hx Substance Use: No - SURGICAL HISTORY Hx Surgeries: Yes Hx Section: Yes (x2) - ANESTHESIA Hx Anesthesia: Yes Hx Anesthesia Reactions: No Hx Malignant Hyperthermia: No Meds Allergies/Adverse Reactions: Allergies Allergy/AdvReac Type Severity Reaction Status Date / Time codeine Allergy VOMITING Verified 01/03/19 13:00 tomato Allergy Verified 01/03/19 13:00 watermelon Allergy Verified 01/03/19 13:00 EGG AdvReac Severe VOMITING Verified 01/03/19 13:00 Penicillins AdvReac Severe DIARRHEA Verified 01/03/19 13:00 chocolate Allergy Uncoded 01/03/19 13:00 - Medications Medications: Current Medications Aspirin (Aspirin Supp) 300 mg AR STAT STA Stop: 01/03/19 13:54 Physical Exam - Constitutional Appears: Non-toxic, No Acute Distress - Head Exam Head Exam: ATRAUMATIC, NORMOCEPHALIC - Eye Exam Eye Exam: EOMI, PERRL. absent: Nystagmus - ENT Exam ENT Exam: Mucous Membranes Dry - Respiratory Exam Respiratory Exam: NORMAL BREATHING PATTERN - Cardiovascular Exam Cardiovascular Exam: REGULAR RHYTHM, +S1, +S2 - GI/Abdominal Exam GI & Abdominal Exam: Normal Bowel Sounds, Soft - Neurological Exam Neurological exam: Alert, CN II-XII Intact, Oriented x3 Additional comments: Patient is alert and oriented x3 Able to name objects without confuses Able to lift arms and legs equally Strength 5/5 of upper and lower extremities Sensation intact of upper and lower extremities inside channel account manager 2 to 12 intact No facial droop NIH 0 Results - Vital Signs Recent Vital Signs: Last Vital Signs Temp 98.3 F 01/03/19 12:53 Pulse 106 H 01/03/19 12:53 Resp 18 01/03/19 12:53 BP 148/91 H 01/03/19 12:53 Pulse Ox 97 01/03/19 13:45 - Labs Result Diagrams: 01/03/19 13:59 01/03/19 13:59 Labs: Laboratory Results - last 24 hr 01/03/19 12:51 POC Glucose (mg/dL) 116 H Assessment & Plan - Assessment and Plan (Free Text) Plan: Right sided weakness, rule out CVA/TIA NIH 0 CT head without contrast: Normal CT of the Head. No intracranial hemorrhage. No evidence of acute infarct. CTA head/neck Trace left carotid bulbar atherosclerotic plaque identified. No significant stenosis in the bilateral common carotid or cervical internal carotid arteries bilaterally. No occlusion or significant stenosis in intracranial MR angiography of the brain. 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 Brain MRI without contrast: pending PT/OT/speech ASA 81mg PO Case discussed with Dr. Toño Payne, PGY1
[2019-01-03 14:08] LABS: BASO # 0.1 K/uL (0.0-0.2); BASO % 1.3 % (0.0-2.0); HEMOGLOBIN 11.4 g/dL (11.0-16.0); LYMPH # 1.5 K/uL (1.0-4.3); LYMPH % 31.3 % (20.0-40.0); MEAN CORPUSCULAR HEMOGLOBIN 29.8 pg (27.0-31.0); MEAN PLATELET VOLUME 10.5 fL (7.2-11.7); MONO # 0.3 K/uL (0.0-0.8); MONO % 5.6 % (0.0-10.0); NEUT # 2.9 K/uL (1.8-7.0); NEUT % 61.8 % (50.0-75.0); RBC 3.83 Mil/uL (3.80-5.20); RED CELL DISTRIBUTION WIDTH 14.8 % (11.5-14.5); WHITE BLOOD COUNT 4.6 K/uL (4.8-10.8)
--- NOTE | 2019-01-03 14:11 | RAD ---
Date of service: 01/03/2019 HISTORY: Code Stroke COMPARISON: 12/13/2017 FINDINGS: LUNGS: No active pulmonary disease. PLEURA: No significant pleural effusion identified, no pneumothorax apparent. CARDIOVASCULAR: No aortic atherosclerotic calcification present. Normal cardiac size. No pulmonary vascular congestion. OSSEOUS STRUCTURES: No significant abnormalities. VISUALIZED UPPER ABDOMEN: Normal. OTHER FINDINGS: None. IMPRESSION: No active disease.
[2019-01-03 14:15] LABS: SQUAMOUS EPITHIAL < 1 /hpf (0-5); URINE BACTERIA RARE (<OCC); URINE BILIRUBIN NEGATIVE (NEGATIVE); URINE BLOOD NEGATIVE (NEGATIVE); URINE CLARITY Clear (Clear); URINE COLOR Yellow (YELLOW); URINE GLUCOSE (UA) NORMAL (Normal); URINE LEUKOCYTE ESTERASE 1+ Leu/uL (Negative); URINE PROTEIN NEGATIVE (NEGATIVE); URINE UROBILINOGEN NORMAL mg/dL (0.2-1.0)
[2019-01-03 14:16] LABS: MEAN CELL VOLUME 90.1 fL (81.0-99.0)
[2019-01-03 14:20] LABS: ALB/GLOB RATIO 1.7 (1.0-2.1); ALT/SGPT 37 U/L (9-52); AST/SGOT 46 U/L (14-36); BLOOD UREA NITROGEN 16 mg/dL (7-17); CALCIUM 8.3 mg/dl (8.6-10.4); GFR NON-AFRICAN AMERICAN > 60; HDL CHOLESTEROL 51 mg/dL (30-70)
[2019-01-03 14:23] LABS: PROTHROMBIN TIME 11.1 SECONDS (9.7-12.2)
[2019-01-03 14:31] LABS: LDL CHOLESTEROL 64 mg/dL (0-129)
--- NOTE | 2019-01-03 15:32 | CT ---
Date of service: 01/03/2019 PROCEDURE: CT Angiography of the Brain and Neck. HISTORY: code stroke COMPARISON: None available. TECHNIQUE: CT angiography of the head and neck was performed following intravenous contrast administration. Coronal and sagittal maximum intensity projection reformatted images were generated. Contrast Dose: Visipaque 320, 100 cc Radiation dose: Total exam DLP = 512.38 mGy-cm. This CT exam was performed using one or more of the following dose reduction techniques: Automated exposure control, adjustment of the mA and/or kV according to patient size, and/or use of iterative reconstruction technique. FINDINGS: INTERNAL CEREBRAL ARTERIES: Unremarkable. The skull base, petrous, cavernous and supraclinoid segments are bilaterally widely patent. ANTERIOR CEREBRAL ARTERIES: Unremarkable. A1 and A2 segments are widely patent. Smaller distal branches unremarkable, as visualized. MIDDLE CEREBRAL ARTERIES: Unremarkable. M1 and M2 segments are widely patent. Perisylvian branches grossly symmetric. POSTERIOR CIRCULATION: Basilar Artery: Unremarkable. Distal Vertebral Arteries: Hypoplastic right vertebral artery resulting in left dominant vertebrobasilar circulation. Posterior Cerebral Arteries: Unremarkable. Posterior Inferior Cerebellar Arteries: Unremarkable. NECK CTA: Common Carotid arteries: The bilateral common carotid appear widely patent from their origins to their bifurcations with no significant stenosis appreciated. No evidence to suggest common carotid artery dissection. Trace left carotid bulbar plaque. Internal Carotid arteries: No significant stenosis is appreciated throughout the cervical internal carotid artery segments bilaterally and there is no evidence of dissection either. External Carotid arteries: Appear unremarkable bilaterally. Vertebral arteries: The bilateral vertebral arteries appear normal in caliber from their origins to their distal cervical segments. No significant stenosis or definite pattern of dissection. ANEURYSM/ VASCULAR MALFORMATIONS: None. OTHER FINDINGS: None. IMPRESSION: Trace left carotid bulbar atherosclerotic plaque identified. No significant stenosis in the bilateral common carotid or cervical internal carotid arteries bilaterally. No occlusion or significant stenosis in intracranial MR angiography of the brain. 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
--- NOTE | 2019-01-03 18:25 | MRI ---
Date of service: 01/03/2019 PROCEDURE: MRI BRAIN WITHOUT CONTRAST HISTORY: Right-sided weakness COMPARISON: Comparison made with CT scan and CTA brain obtained earlier same day the TECHNIQUE: Multiplanar, multisequence MR images of the brain were obtained without intravenous contrast enhancement. FINDINGS: HEMORRHAGE: No acute parenchymal, subarachnoid or extra-axial hemorrhage. No evidence of hemosiderin deposition is identified on gradient echo weighted sequence. DWI: No evidence of an acute or early subacute infarction seen on diffusion imaging. BRAIN PARENCHYMA: There are several small focal areas of increased T2 signal seen scattered about the deep and subcortical white matter both cerebral hemispheres which are nonspecific though could represent chronic sequela of small vessel disease. Differential diagnosis would include sequela of migraine headaches, old trauma or post infectious/inflammatory etiologies. The findings are not typical for a demyelinating disease process such as multiple sclerosis. Mild age-appropriate volume loss No obvious extra-axial masses or collections seen on this noncontrast exam. VENTRICLES: No obstructive hydrocephalus. CRANIUM: Unremarkable. ORBITS: Orbits and contents grossly unremarkable. PARANASAL SINUSES/MASTOIDS: Mucosal thickening seen within 1 or 2 ethmoid air cells. VASCULAR SYSTEM: Visualized major vascular flow voids at skull base patent. OTHER FINDINGS: None. IMPRESSION: No acute intracranial hemorrhage or infarction. There are several small focal areas of increased T2 signal seen scattered about the deep and subcortical white matter both cerebral hemispheres which are nonspecific though could represent chronic sequela of small vessel disease. Differential diagnosis would include sequela of migraine headaches, old trauma or post infectious/inflammatory etiologies. The findings are not typical for a demyelinating disease process such as multiple sclerosis. Mild age-appropriate volume loss
--- NOTE | 2019-01-03 19:13 | CP.PCM.HP ---
Past Patient History - Infectious Disease Hx of Infectious Diseases: None - Past Medical History & Family History Past Medical History?: Yes - Past Social History Smoking Status: Never Smoked - CARDIAC Hx Hypercholesterolemia: Yes Hx Hypertension: Yes - PULMONARY Hx Asthma: Yes Hx Chronic Obstructive Pulmonary Disease (COPD): Yes (ASTHMA) - NEUROLOGICAL Hx Transient Ischemic Attacks (TIA): Yes (12/03/17) - HEENT Hx HEENT Problems: No - RENAL Hx Chronic Kidney Disease: No - ENDOCRINE/METABOLIC Hx Endocrine Disorders: No - HEMATOLOGICAL/ONCOLOGICAL Hx Blood Disorders: No - INTEGUMENTARY Hx Dermatological Problems: No - MUSCULOSKELETAL/RHEUMATOLOGICAL Hx Arthritis: Yes (BACK) - GASTROINTESTINAL Hx Gastritis: Yes - GENITOURINARY/GYNECOLOGICAL Hx Genitourinary Disorders: No - PSYCHIATRIC Hx Schizophrenia: Yes Hx Substance Use: No - SURGICAL HISTORY Hx Surgeries: Yes Hx Section: Yes (x2) - ANESTHESIA Hx Anesthesia: Yes Hx Anesthesia Reactions: No Hx Malignant Hyperthermia: No Meds Allergies/Adverse Reactions: Allergies Allergy/AdvReac Type Severity Reaction Status Date / Time codeine Allergy VOMITING Verified 01/03/19 13:00 tomato Allergy Verified 01/03/19 13:00 watermelon Allergy Verified 01/03/19 13:00 EGG AdvReac Severe VOMITING Verified 01/03/19 13:00 Penicillins AdvReac Severe DIARRHEA Verified 01/03/19 13:00 chocolate Allergy Uncoded 01/03/19 13:00 Physical Exam - Constitutional Appears: Well - Head Exam Head Exam: ATRAUMATIC, NORMAL INSPECTION, NORMOCEPHALIC - Eye Exam Eye Exam: EOMI, Normal appearance, PERRL Pupil Exam: NORMAL ACCOMODATION, PERRL - ENT Exam ENT Exam: Mucous Membranes Moist, Normal Exam - Neck Exam Neck exam: Positive for: Normal Inspection - Respiratory Exam Respiratory Exam: Decreased Breath Sounds - Cardiovascular Exam Cardiovascular Exam: REGULAR RHYTHM, +S1, +S2 - GI/Abdominal Exam GI & Abdominal Exam: Diminished Bowel Sounds, Soft - Rectal Exam Rectal Exam: Deferred Results - Vital Signs Recent Vital Signs: Last Vital Signs Temp 97.9 F 01/03/19 17:42 Pulse 93 H 01/03/19 17:42 Resp 16 01/03/19 17:42 BP 139/86 01/03/19 17:42 Pulse Ox 98 01/03/19 17:42 - Labs Result Diagrams: 01/03/19 13:59 01/03/19 13:59 Labs: Laboratory Results - last 24 hr 01/03/19 01/03/19 01/03/19 12:51 13:59 13:59 WBC 4.6 L RBC 3.83 Hgb 11.4 Hct 34.5 MCV 90.1 D MCH 29.8 MCHC 33.0 RDW 14.8 H Plt Count 118 L D MPV 10.5 Neut % (Auto) 61.8 Lymph % (Auto) 31.3 [place] % (Auto) 5.6 Eos % (Auto) 0.0 Baso % (Auto) 1.3 Neut # (Auto) 2.9 Lymph # (Auto) 1.5 [place] # (Auto) 0.3 Eos # (Auto) 0.0 Baso # (Auto) 0.1 Differential Comment PT 11.1 INR 1.0 APTT 27 Sodium Potassium Chloride Carbon Dioxide Anion Gap BUN Creatinine Est GFR ( Amer) Est GFR (Non-Af Amer) POC Glucose (mg/dL) 116 H Random Glucose Hemoglobin A1c Calcium Total Bilirubin AST ALT Alkaline Phosphatase Troponin I Total Protein Albumin Globulin Albumin/Globulin Ratio Triglycerides Cholesterol LDL Cholesterol Direct HDL Cholesterol Urine Color Urine Clarity Urine pH Ur Specific [place] Urine Protein Urine Glucose (UA) Urine Ketones Urine Blood Urine Nitrate Urine Bilirubin Urine Urobilinogen Ur Leukocyte Esterase Urine WBC (Auto) Ur Squamous Epith Cells Urine Bacteria Blood Type Antibody Screen 01/03/19 01/03/19 01/03/19 13:59 13:59 13:59 WBC RBC Hgb Hct MCV MCH MCHC RDW Plt Count MPV Neut % (Auto) Lymph % (Auto) [place] % (Auto) Eos % (Auto) Baso % (Auto) Neut # (Auto) Lymph # (Auto) [place] # (Auto) Eos # (Auto) Baso # (Auto) Differential Comment PT INR APTT Sodium 139 Potassium 3.9 Chloride 104 Carbon Dioxide 27 Anion Gap 13 BUN 16 Creatinine 0.7 Est GFR ( Amer) > 60 Est GFR (Non-Af Amer) > 60 POC Glucose (mg/dL) Random Glucose 110 H Hemoglobin A1c 5.0 Calcium 8.3 L Total Bilirubin 0.3 AST 46 H D ALT 37 Alkaline Phosphatase 138 H D Troponin I < 0.0120 Total Protein 6.3 Albumin 4.0 Globulin 2.4 Albumin/Globulin Ratio 1.7 Triglycerides 60 D Cholesterol 118 LDL Cholesterol Direct 64 HDL Cholesterol 51 Urine Color Urine Clarity Urine pH Ur Specific [place] Urine Protein Urine Glucose (UA) Urine Ketones Urine Blood Urine Nitrate Urine Bilirubin Urine Urobilinogen Ur Leukocyte Esterase Urine WBC (Auto) Ur Squamous Epith Cells Urine Bacteria Blood Type B POSITIVE Antibody Screen Negative 01/03/19 13:59 WBC RBC Hgb Hct MCV MCH MCHC RDW Plt Count MPV Neut % (Auto) Lymph % (Auto) [place] % (Auto) Eos % (Auto) Baso % (Auto) Neut # (Auto) Lymph # (Auto) [place] # (Auto) Eos # (Auto) Baso # (Auto) Differential Comment PT INR APTT Sodium Potassium Chloride Carbon Dioxide Anion Gap BUN Creatinine Est GFR ( Amer) Est GFR (Non-Af Amer) POC Glucose (mg/dL) Random Glucose Hemoglobin A1c Calcium Total Bilirubin AST ALT Alkaline Phosphatase Troponin I Total Protein Albumin Globulin Albumin/Globulin Ratio Triglycerides Cholesterol LDL Cholesterol Direct HDL Cholesterol Urine Color Yellow Urine Clarity Clear Urine pH 5.0 Ur Specific [place] 1.013 Urine Protein Negative Urine Glucose (UA) Normal Urine Ketones Negative Urine Blood Negative Urine Nitrate Negative Urine Bilirubin Negative Urine Urobilinogen Normal Ur Leukocyte Esterase 1+ H Urine WBC (Auto) 5 Ur Squamous Epith Cells < 1 Urine Bacteria Rare Blood Type Antibody Screen
[2019-01-04] MEDS: FLUoxetine Elix 20 MG/5 ML PO SCH ×2 (00:15→13:04)
[2019-01-04 00:38] LABS: CK-MB < 0.22 ng/mL (0.0-3.38)
--- NOTE | 2019-01-04 07:16 | CP.PCM.CON ---
History of Present Illness - History of Present Illness History of Present Illness: CONSULTATION DICTATED RECURRENT HEMISPHERIC DYSFUNCTION ISCHEMIA Vs SEIZURE SEVERE NEUROPATHY WITH POSTERIOR COLUMN DYSFUNCTION MRI/EEG/ECHO BLOOD WORK UP FOR HYPER COAGULABLE STAGE ASA & PLAVIX PT Past Patient History - Infectious Disease Hx of Infectious Diseases: None - Past Medical History & Family History Past Medical History?: Yes - Past Social History Smoking Status: Never Smoked - CARDIAC Hx Hypercholesterolemia: Yes Hx Hypertension: Yes - PULMONARY Hx Asthma: Yes Hx Chronic Obstructive Pulmonary Disease (COPD): Yes (ASTHMA) - NEUROLOGICAL Hx Transient Ischemic Attacks (TIA): Yes (12/03/17) - HEENT Hx HEENT Problems: No - RENAL Hx Chronic Kidney Disease: No - ENDOCRINE/METABOLIC Hx Endocrine Disorders: No - HEMATOLOGICAL/ONCOLOGICAL Hx Blood Disorders: No - INTEGUMENTARY Hx Dermatological Problems: No - MUSCULOSKELETAL/RHEUMATOLOGICAL Hx Arthritis: Yes (BACK) - GASTROINTESTINAL Hx Gastritis: Yes - GENITOURINARY/GYNECOLOGICAL Hx Genitourinary Disorders: No - PSYCHIATRIC Hx Schizophrenia: Yes Hx Substance Use: No - SURGICAL HISTORY Hx Surgeries: Yes Hx Section: Yes (x2) - ANESTHESIA Hx Anesthesia: Yes Hx Anesthesia Reactions: No Hx Malignant Hyperthermia: No Meds Allergies/Adverse Reactions: Allergies Allergy/AdvReac Type Severity Reaction Status Date / Time codeine Allergy VOMITING Verified 01/03/19 13:00 tomato Allergy Verified 01/03/19 13:00 watermelon Allergy Verified 01/03/19 13:00 EGG AdvReac Severe VOMITING Verified 01/03/19 13:00 Penicillins AdvReac Severe DIARRHEA Verified 01/03/19 13:00 chocolate Allergy Uncoded 01/03/19 13:00 - Medications Medications: Current Medications Aspirin (Aspirin Chewable) 81 mg PO DAILY [facility] Aspirin (Aspirin) 325 mg PO DAILY [facility] Benztropine Mesylate (Cogentin) 1 mg PO BID [facility] Last Admin: 01/04/19 00:15 Dose: Not Given Clopidogrel Bisulfate (Plavix) 75 mg PO DAILY [facility] Docusate Sodium (Colace) 100 mg PO TID [facility] Enoxaparin Sodium (Lovenox) 40 mg SC DAILY [facility] Famotidine (Pepcid) 20 mg IVP Q12 [facility] Fluoxetine HCl (Prozac) 20 mg PO DAILY [facility] Last Admin: 01/04/19 00:15 Dose: Not Given Haloperidol (Haldol) 1 mg PO HS [facility] Last Admin: 01/04/19 00:15 Dose: Not Given Losartan Potassium (Cozaar) 100 mg PO DAILY [facility] Ondansetron HCl (Zofran Tab) 4 mg PO BID PRN PRN Reason: Nausea/Vomiting Rosuvastatin Calcium (Crestor) 10 mg PO HS [facility] Last Admin: 01/04/19 00:15 Dose: Not Given Results - Vital Signs Recent Vital Signs: Last Vital Signs Temp 98.5 F 01/03/19 23:20 Pulse 83 01/04/19 00:00 Resp 20 01/03/19 23:20 BP 107/70 01/03/19 23:20 Pulse Ox 96 01/03/19 23:20 - Labs Result Diagrams: 01/03/19 13:59 01/03/19 13:59 Labs: Laboratory Results - last 24 hr 01/03/19 01/03/19 01/03/19 12:51 13:59 13:59 WBC 4.6 L RBC 3.83 Hgb 11.4 Hct 34.5 MCV 90.1 D MCH 29.8 MCHC 33.0 RDW 14.8 H Plt Count 118 L D MPV 10.5 Neut % (Auto) 61.8 Lymph % (Auto) 31.3 [place] % (Auto) 5.6 Eos % (Auto) 0.0 Baso % (Auto) 1.3 Neut # (Auto) 2.9 Lymph # (Auto) 1.5 [place] # (Auto) 0.3 Eos # (Auto) 0.0 Baso # (Auto) 0.1 Differential Comment PT 11.1 INR 1.0 APTT 27 Sodium Potassium Chloride Carbon Dioxide Anion Gap BUN Creatinine Est GFR ( Amer) Est GFR (Non-Af Amer) POC Glucose (mg/dL) 116 H Random Glucose Hemoglobin A1c Calcium Total Bilirubin AST ALT Alkaline Phosphatase Total Creatine Kinase CK-MB (Mass) Troponin I Total Protein Albumin Globulin Albumin/Globulin Ratio Triglycerides Cholesterol LDL Cholesterol Direct HDL Cholesterol Urine Color Urine Clarity Urine pH Ur Specific [place] Urine Protein Urine Glucose (UA) Urine Ketones Urine Blood Urine Nitrate Urine Bilirubin Urine Urobilinogen Ur Leukocyte Esterase Urine WBC (Auto) Ur Squamous Epith Cells Urine Bacteria Blood Type Antibody Screen 01/03/19 01/03/19 01/03/19 13:59 13:59 13:59 WBC RBC Hgb Hct MCV MCH MCHC RDW Plt Count MPV Neut % (Auto) Lymph % (Auto) [place] % (Auto) Eos % (Auto) Baso % (Auto) Neut # (Auto) Lymph # (Auto) [place] # (Auto) Eos # (Auto) Baso # (Auto) Differential Comment PT INR APTT Sodium 139 Potassium 3.9 Chloride 104 Carbon Dioxide 27 Anion Gap 13 BUN 16 Creatinine 0.7 Est GFR ( Amer) > 60 Est GFR (Non-Af Amer) > 60 POC Glucose (mg/dL) Random Glucose 110 H Hemoglobin A1c 5.0 Calcium 8.3 L Total Bilirubin 0.3 AST 46 H D ALT 37 Alkaline Phosphatase 138 H D Total Creatine Kinase CK-MB (Mass) Troponin I < 0.0120 Total Protein 6.3 Albumin 4.0 Globulin 2.4 Albumin/Globulin Ratio 1.7 Triglycerides 60 D Cholesterol 118 LDL Cholesterol Direct 64 HDL Cholesterol 51 Urine Color Urine Clarity Urine pH Ur Specific [place] Urine Protein Urine Glucose (UA) Urine Ketones Urine Blood Urine Nitrate Urine Bilirubin Urine Urobilinogen Ur Leukocyte Esterase Urine WBC (Auto) Ur Squamous Epith Cells Urine Bacteria Blood Type B POSITIVE Antibody Screen Negative 01/03/19 01/04/19 13:59 00:07 WBC RBC Hgb Hct MCV MCH MCHC RDW Plt Count MPV Neut % (Auto) Lymph % (Auto) [place] % (Auto) Eos % (Auto) Baso % (Auto) Neut # (Auto) Lymph # (Auto) [place] # (Auto) Eos # (Auto) Baso # (Auto) Differential Comment PT INR APTT Sodium Potassium Chloride Carbon Dioxide Anion Gap BUN Creatinine Est GFR ( Amer) Est GFR (Non-Af Amer) POC Glucose (mg/dL) Random Glucose Hemoglobin A1c Calcium Total Bilirubin AST ALT Alkaline Phosphatase Total Creatine Kinase 37 CK-MB (Mass) < 0.22 Troponin I < 0.0120 Total Protein Albumin Globulin Albumin/Globulin Ratio Triglycerides Cholesterol LDL Cholesterol Direct HDL Cholesterol Urine Color Yellow Urine Clarity Clear Urine pH 5.0 Ur Specific [place] 1.013 Urine Protein Negative Urine Glucose (UA) Normal Urine Ketones Negative Urine Blood Negative Urine Nitrate Negative Urine Bilirubin Negative Urine Urobilinogen Normal Ur Leukocyte Esterase 1+ H Urine WBC (Auto) 5 Ur Squamous Epith Cells < 1 Urine Bacteria Rare Blood Type Antibody Screen
[2019-01-04 09:05] LABS: HDL CHOLESTEROL 46 mg/dL (30-70)
[2019-01-04 09:22] LABS: PROLACTIN 9.2 ng/mL (3.0-18.9)
[2019-01-04 09:31] LABS: LDL CHOLESTEROL 68 mg/dL (0-129)
[2019-01-04] MEDS ORDERED: Pantoprazole 40 mg EC Tab PO SCH (10:00)
[2019-01-04] MEDS ORDERED: FLUOXETINE 20 MG/5 ML ONE (10:00)
[2019-01-04 10:19] LABS: CK-MB < 0.22 ng/mL (0.0-3.38)
[2019-01-04 10:33] LABS: FREE T4 0.8 ng/dL (0.78-2.19)
[2019-01-04] MEDS: Enoxaparin 40 mg Syringe SC SCH (13:01)
--- NOTE | 2019-01-04 13:22 | CP.PCM.CON ---
History of Present Illness - History of Present Illness History of Present Illness: 53 year old female with PMHx of HTN, HLD, COPD, ? CVA x2 in past...brought in by BLS for evaluation of possible stroke. Per EMS, they were called after the patient fell and patient was noted to have right-sided facial droop and was le aning toward the right at that time. On arrival patient is AAOx3, responding appropriately to questions. States she noticed her speech was slurred and her right arm began feeling weak around 11:00pm last night, upon returning home from a alliance party. She denies any visual loss, numbness, lower extremity weakness, chest pain, SOB, or dizziness. Of note, patient has a history of stroke 1 year ago per EMS. Patient was seen here on 12/13/18 for right-sided weakness and admitted for TIA. Ordinarily mildly active: uses a walker due to reported hx of imbalance Seen by neuro: notes as follows RECURRENT HEMISPHERIC DYSFUNCTION ISCHEMIA Vs SEIZURE SEVERE NEUROPATHY WITH POSTERIOR COLUMN DYSFUNCTION MRI/EEG/ECHO BLOOD WORK UP FOR HYPER COAGULABLE STAGE ASA & PLAVIX PT Patient reports: 2 c-sections, no cardiac procedures Social: non-smoker other: No DM or etoh/drug abuse Review of Systems - Review of Systems All systems: reviewed and no additional remarkable complaints except Past Patient History - Infectious Disease Hx of Infectious Diseases: None - Past Medical History & Family History Past Medical History?: Yes - Past Social History Smoking Status: Never Smoked - CARDIAC Hx Hypertension: Yes - PULMONARY Hx Asthma: Yes Hx Chronic Obstructive Pulmonary Disease (COPD): Yes (ASTHMA) - NEUROLOGICAL HX Cerebrovascular Accident: Yes - HEENT Hx HEENT Problems: No - RENAL Hx Chronic Kidney Disease: No - ENDOCRINE/METABOLIC Hx Endocrine Disorders: No - HEMATOLOGICAL/ONCOLOGICAL Hx Blood Disorders: No - INTEGUMENTARY Hx Dermatological Problems: No - MUSCULOSKELETAL/RHEUMATOLOGICAL Hx Arthritis: Yes (BACK) - GASTROINTESTINAL Hx Gastritis: Yes - GENITOURINARY/GYNECOLOGICAL Hx Genitourinary Disorders: No - PSYCHIATRIC Hx Schizophrenia: Yes Hx Substance Use: No - SURGICAL HISTORY Hx Surgeries: Yes Hx Section: Yes (x2) - ANESTHESIA Hx Anesthesia: Yes Hx Anesthesia Reactions: No Hx Malignant Hyperthermia: No Meds Allergies/Adverse Reactions: Allergies Allergy/AdvReac Type Severity Reaction Status Date / Time codeine Allergy VOMITING Verified 01/03/19 13:00 tomato Allergy Verified 01/03/19 13:00 watermelon Allergy Verified 01/03/19 13:00 EGG AdvReac Severe VOMITING Verified 01/03/19 13:00 Penicillins AdvReac Severe DIARRHEA Verified 01/03/19 13:00 chocolate Allergy Uncoded 01/03/19 13:00 - Medications Medications: Current Medications Aspirin (Aspirin Chewable) 81 mg PO DAILY [facility] Aspirin (Aspirin) 325 mg PO DAILY [facility] Last Admin: 01/04/19 13:02 Dose: 325 mg Benztropine Mesylate (Cogentin) 1 mg PO BID [facility] Last Admin: 01/04/19 13:13 Dose: 1 mg Clopidogrel Bisulfate (Plavix) 75 mg PO DAILY [facility] Last Admin: 01/04/19 13:03 Dose: 75 mg Docusate Sodium (Colace) 100 mg PO TID [facility] Last Admin: 01/04/19 13:15 Dose: 100 mg Enoxaparin Sodium (Lovenox) 40 mg SC DAILY [facility] Last Admin: 01/04/19 13:01 Dose: 40 mg Famotidine (Pepcid) 20 mg IVP Q12 [facility] Last Admin: 01/04/19 13:02 Dose: 20 mg Fluoxetine HCl (Prozac) 20 mg PO DAILY [facility] Last Admin: 01/04/19 13:04 Dose: 20 mg Haloperidol (Haldol) 1 mg PO [facility] Last Admin: 01/04/19 00:15 Dose: Not Given Losartan Potassium (Cozaar) 100 mg PO DAILY [facility] Last Admin: 01/04/19 13:02 Dose: 100 mg Ondansetron HCl (Zofran Tab) 4 mg PO BID PRN PRN Reason: Nausea/Vomiting Rosuvastatin Calcium (Crestor) 10 mg PO [facility] Last Admin: 01/04/19 00:15 Dose: Not Given Physical Exam - Constitutional Appears: No Acute Distress - Head Exam Head Exam: ATRAUMATIC, NORMAL INSPECTION, NORMOCEPHALIC - Eye Exam Eye Exam: EOMI, Normal appearance. absent: Scleral icterus - ENT Exam ENT Exam: Mucous Membranes Moist, Normal Oropharynx - Neck Exam Neck exam: Positive for: Full Rom, Normal Inspection. Negative for: Tenderness - Respiratory Exam Respiratory Exam: Clear to Auscultation Bilateral, NORMAL BREATHING PATTERN. absent: Rhonchi, Wheezes - Cardiovascular Exam Cardiovascular Exam: REGULAR RHYTHM, +S1, +S2. absent: JVD, +S4, Systolic Murmur - GI/Abdominal Exam GI & Abdominal Exam: Normal Bowel Sounds, Soft. absent: Tenderness - Extremities Exam Extremities exam: Positive for: normal inspection. Negative for: calf t enderness, pedal edema - Neurological Exam Neurological exam: Alert, Oriented x3 - Psychiatric Exam Psychiatric exam: Normal Affect, Normal Mood - Skin Skin Exam: Intact, Normal Color Results - Vital Signs Recent Vital Signs: Last Vital Signs Temp 98.1 F 01/04/19 07:00 Pulse 87 01/04/19 07:15 Resp 20 01/04/19 07:00 BP 109/76 01/04/19 07:00 Pulse Ox 95 01/04/19 07:00 - Labs Result Diagrams: 01/03/19 13:59 01/03/19 13:59 Labs: Laboratory Results - last 24 hr 01/03/19 01/03/19 01/03/19 13:59 13:59 13:59 WBC 4.6 L RBC 3.83 Hgb 11.4 Hct 34.5 MCV 90.1 D MCH 29.8 MCHC 33.0 RDW 14.8 H Plt Count 118 L D MPV 10.5 Neut % (Auto) 61.8 Lymph % (Auto) 31.3 [place] % (Auto) 5.6 Eos % (Auto) 0.0 Baso % (Auto) 1.3 Neut # (Auto) 2.9 Lymph # (Auto) 1.5 [place] # (Auto) 0.3 Eos # (Auto) 0.0 Baso # (Auto) 0.1 Differential Comment PT 11.1 INR 1.0 APTT 27 Sodium 139 Potassium 3.9 Chloride 104 Carbon Dioxide 27 Anion Gap 13 BUN 16 Creatinine 0.7 Est GFR ( Amer) > 60 Est GFR (Non-Af Amer) > 60 Random Glucose 110 H Hemoglobin A1c Calcium 8.3 L Total Bilirubin 0.3 AST 46 H D ALT 37 Alkaline Phosphatase 138 H D Total Creatine Kinase CK-MB (Mass) Troponin I < 0.0120 Total Protein 6.3 Albumin 4.0 Globulin 2.4 Albumin/Globulin Ratio 1.7 Triglycerides 60 D Cholesterol 118 LDL Cholesterol Direct 64 HDL Cholesterol 51 Homocysteine Free T4 TSH 3rd Generation Prolactin Urine Color Urine Clarity Urine pH Ur Specific [place] Urine Protein Urine Glucose (UA) Urine Ketones Urine Blood Urine Nitrate Urine Bilirubin Urine Urobilinogen Ur Leukocyte Esterase Urine WBC (Auto) Ur Squamous Epith Cells Urine Bacteria RPR Blood Type Antibody Screen 01/03/19 01/03/19 01/03/19 13:59 13:59 13:59 WBC RBC Hgb Hct MCV MCH MCHC RDW Plt Count MPV Neut % (Auto) Lymph % (Auto) [place] % (Auto) Eos % (Auto) Baso % (Auto) Neut # (Auto) Lymph # (Auto) [place] # (Auto) Eos # (Auto) Baso # (Auto) Differential Comment PT INR APTT Sodium Potassium Chloride Carbon Dioxide Anion Gap BUN Creatinine Est GFR ( Amer) Est GFR (Non-Af Amer) Random Glucose Hemoglobin A1c 5.0 Calcium Total Bilirubin AST ALT Alkaline Phosphatase Total Creatine Kinase CK-MB (Mass) Troponin I Total Protein Albumin Globulin Albumin/Globulin Ratio Triglycerides Cholesterol LDL Cholesterol Direct HDL Cholesterol Homocysteine Free T4 TSH 3rd Generation Prolactin Urine Color Yellow Urine Clarity Clear Urine pH 5.0 Ur Specific [place] 1.013 Urine Protein Negative Urine Glucose (UA) Normal Urine Ketones Negative Urine Blood Negative Urine Nitrate Negative Urine Bilirubin Negative Urine Urobilinogen Normal Ur Leukocyte Esterase 1+ H Urine WBC (Auto) 5 Ur Squamous Epith Cells < 1 Urine Bacteria Rare RPR Blood Type B POSITIVE Antibody Screen Negative 01/04/19 01/04/19 01/04/19 00:07 07:17 07:17 WBC RBC Hgb Hct MCV MCH MCHC RDW Plt Count MPV Neut % (Auto) Lymph % (Auto) [place] % (Auto) Eos % (Auto) Baso % (Auto) Neut # (Auto) Lymph # (Auto) [place] # (Auto) Eos # (Auto) Baso # (Auto) Differential Comment PT INR APTT Sodium Potassium Chloride Carbon Dioxide Anion Gap BUN Creatinine Est GFR ( Amer) Est GFR (Non-Af Amer) Random Glucose Hemoglobin A1c Calcium Total Bilirubin AST ALT Alkaline Phosphatase Total Creatine Kinase 37 44 CK-MB (Mass) < 0.22 < 0.22 Troponin I < 0.0120 < 0.0120 Total Protein Albumin Globulin Albumin/Globulin Ratio Triglycerides 136 D Cholesterol 135 LDL Cholesterol Direct 68 HDL Cholesterol 46 Homocysteine 10.5 Free T4 TSH 3rd Generation Prolactin 9.2 Urine Color Urine Clarity Urine pH Ur Specific [place] Urine Protein Urine Glucose (UA) Urine Ketones Urine Blood Urine Nitrate Urine Bilirubin Urine Urobilinogen Ur Leukocyte Esterase Urine WBC (Auto) Ur Squamous Epith Cells Urine Bacteria RPR Nonreactive Blood Type Antibody Screen 01/04/19 10:04 WBC RBC Hgb Hct MCV MCH MCHC RDW Plt Count MPV Neut % (Auto) Lymph % (Auto) [place] % (Auto) Eos % (Auto) Baso % (Auto) Neut # (Auto) Lymph # (Auto) [place] # (Auto) Eos # (Auto) Baso # (Auto) Differential Comment PT INR APTT Sodium Potassium Chloride Carbon Dioxide Anion Gap BUN Creatinine Est GFR ( Amer) Est GFR (Non-Af Amer) Random Glucose Hemoglobin A1c Calcium Total Bilirubin AST ALT Alkaline Phosphatase Total Creatine Kinase CK-MB (Mass) Troponin I Total Protein Albumin Globulin Albumin/Globulin Ratio Triglycerides Cholesterol LDL Cholesterol Direct HDL Cholesterol Homocysteine Free T4 0.80 TSH 3rd Generation 1.16 Prolactin Urine Color Urine Clarity Urine pH Ur Specific [place] Urine Protein Urine Glucose (UA) Urine Ketones Urine Blood Urine Nitrate Urine Bilirubin Urine Urobilinogen Ur Leukocyte Esterase Urine WBC (Auto) Ur Squamous Epith Cells Urine Bacteria RPR Blood Type Antibody Screen - EKG Data EKG Interpreted by: Myself - Imaging and Cardiology Chest x-ray Status: Image reviewed by me Assessment & Plan - Assessment and Plan (Free Text) Assessment: Images reviewed directly by me: > CT head: no acute findings > CTA: mild L. bulb plaque, no carotid or intracranial stenosis > MRI: No acute infarct or bleed > Echo : Normal LVEF, normal LA size, mild sclerotic changes, grade 1 diastolic dysfunction, normal PASP, intact atrial septum. > EKG: NSR, mild sinus tach > CXR: No acute pathology > No evidence for ACS, normal creat and H/H Syncope/fall: - no evidence of arrythmia - Normal cardiac structure and function without any valvular pathology - Normal EKG: no arrythmias - Doubt cardiac cause of sx's: continue with neurology work-up and eval - agree with antiplatelet and statin for ASCVD prior CVA HTN - controlled on losartan LIPIDS - continue crestor DVT prophylaxis PT No additional cardiac w/u planned.
--- NOTE | 2019-01-04 13:52 | CON ---
DATE: 01/04/2019 LOCATION: The patient's room number 653, bed B. ATTENDING PHYSICIAN: Marisa Bray MD TIME OF EVALUATION: 06:55 a.m. REASON FOR CONSULTATION: Possible stroke. CHIEF COMPLAINT: The patient was brought into [facility] following a fall at home. Prior to the fall, she felt dizzy and she was admitted with possible transient ischemic attack. From neurological point of view, I was called into evaluate her for further management. HISTORY OF PRESENT ILLNESS: Ms. Maryjane Jewell is a 53-year-old right-handed female who has been disabled, using the cane and walker for the last three months with no reason and history of TIA, been treated last year, all workup were negative. The patient also known to have asthma, hyperlipidemia, hypertension, and schizophrenia for many years, been on multiple medications from the psychiatric point of view. Two days ago, following a alliance party she came home, she felt right-sided weakness and slurred speech. she went to bed with that symptoms. The following day, she woke up, she felt dizzy and fell on her right side, landed on her buttocks. No loss of consciousness. She denies any chest pain, shortness of breath. No nausea or vomiting. No visual or bulbar dysfunction. PAST MEDICAL HISTORY: As stated above. ALLERGIES: PENICILLIN. PERSONAL HISTORY: Denies smoking or alcohol use. REVIEW OF SYSTEMS: A 12-point system being reviewed. From neuro, [facility] for dizziness and fall. MEDICATIONS: Aspirin, Cogentin, Colace, Cozaar, Crestor, Haldol, Lovenox, Pepcid, Plavix, fluoxetine. PHYSICAL EXAMINATION: VITAL SIGNS: Blood pressure 107/70, mean arterial pressure of 82, respiratory rate 18, temperature 98.5 with a pulse rate 85. NECK: Supple. No carotid bruit. HEART: Sounds regular with systolic murmur. EXTREMITIES: No edema in legs. NEUROLOGIC EXAMINATION: Mental status examination: She is awake, alert, oriented to person, place and time. Speech is clear. Naming, repetition, fluency, comprehension all within normal. No visual or auditory hallucination. No suicidal ideation. Cranial nerve examination: Visual field intact. Pupils reactive to light. Extraocular movement intact. No facial sensory deficit. No facial asymmetry. Hearing is normal. Tongue is midline. Good gag. Motor examination: Outstretched hand with eyes closed. Significant asterixis on both upper extremities. Deep tendon reflexes, hyperreflexic both upper extremities and knees. Both ankles are absent. Plantars are downgoing. Sensory examination: Significantly impaired position sense in both lower extremities on examination of joint position sense. Significantly increased pinprick and vibration, temperature sense decreased in lower extremities. Coordination: Finger-nose test is intact. Gait: Deferred at this time because of tendency of losing balance with history and using her walker at this time. CONCLUSION: As per my neurological examination on reviewing her history, the patient is presenting with possible left cerebral recurrent dysfunction manifesting with right hemiparesis. As per the history, there is a possibility of either ischemic process versus seizures. Her examination is also suggestive of significant posterior column involving sensory motor neuropathy. This would be complicating her walking as well as losing her balance, tendency to fall as well. WORKUP: WBC 4.6, hemoglobin 11.4, hematocrit 34.5, platelet 118. PT 11.1, INR 1, PTT 27. Sodium 139, potassium 3.9, chloride 104, bicarbonate 27, BUN 16, GFR more than 60, glucose 116, hemoglobin A1c 5. Triglyceride 60, cholesterol 118, LDL 64, HDL 51. Urinalysis negative. Her MRI of the brain showed bilateral small vessel disease. She denies CT of the head. She did a CT angiogram, all negative. RECOMMENDATIONS: 1. Agree with aspirin and Plavix with statin and angiotensin receptor blockers. 2. Considering her psychiatric history, the patient should be followed by a psychiatrist as well. Unwanted medication should be discontinued. 3. Persistent asterixis, metabolic causes should be ruled out. The patient definitely needs electrodiagnostic studies, EMG, and nerve conduction study, that can be done as outpatient. In the meantime, the patient should be kept fall precaution. The patient will be followed while she is in the hospital. Enrique Reyes MD
--- NOTE | 2019-01-04 14:56 | CP.PCM.PN ---
Subjective - Date & Time of Evaluation Date of Evaluation: 01/04/19 Time of Evaluation: 12:15 - Subjective Subjective: clinically same Objective - Vital Signs/Intake and Output Vital Signs (last 24 hours): Temp Pulse Resp BP Pulse Ox 98.1 F 87 20 109/76 95 01/04/19 07:00 01/04/19 07:15 01/04/19 07:00 01/04/19 07:00 01/04/19 07:00 Intake and Output: 01/04/19 01/04/19 06:59 18:59 Intake Total 50 Balance 50 - Medications Medications: Current Medications Aspirin (Aspirin Chewable) 81 mg PO DAILY [facility] Aspirin (Aspirin) 325 mg PO DAILY [facility] Last Admin: 01/04/19 13:02 Dose: 325 mg Benztropine Mesylate (Cogentin) 1 mg PO BID [facility] Last Admin: 01/04/19 13:13 Dose: 1 mg Clopidogrel Bisulfate (Plavix) 75 mg PO DAILY [facility] Last Admin: 01/04/19 13:03 Dose: 75 mg Docusate Sodium (Colace) 100 mg PO TID [facility] Last Admin: 01/04/19 13:15 Dose: 100 mg Enoxaparin Sodium (Lovenox) 40 mg SC DAILY [facility] Last Admin: 01/04/19 13:01 Dose: 40 mg Famotidine (Pepcid) 20 mg IVP Q12 [facility] Last Admin: 01/04/19 13:02 Dose: 20 mg Fluoxetine HCl (Prozac) 20 mg PO DAILY [facility] Last Admin: 01/04/19 13:04 Dose: 20 mg Haloperidol (Haldol) 1 mg PO HS [facility] Last Admin: 01/04/19 00:15 Dose: Not Given Losartan Potassium (Cozaar) 100 mg PO DAILY [facility] Last Admin: 01/04/19 13:02 Dose: 100 mg Ondansetron HCl (Zofran Tab) 4 mg PO BID PRN PRN Reason: Nausea/Vomiting Rosuvastatin Calcium (Crestor) 10 mg PO HS [facility] Last Admin: 01/04/19 00:15 Dose: Not Given - Labs Labs: 01/03/19 13:59 01/03/19 13:59 PT 11.1 SECONDS (9.7-12.2) 01/03/19 13:59 INR 1.0 01/03/19 13:59 APTT 27 SECONDS (21-34) 01/03/19 13:59 - Constitutional Appears: Well - Head Exam Head Exam: ATRAUMATIC, NORMAL INSPECTION, NORMOCEPHALIC - Eye Exam Eye Exam: EOMI, Normal appearance, PERRL Pupil Exam: NORMAL ACCOMODATION, PERRL - ENT Exam ENT Exam: Mucous Membranes Moist, Normal Exam - Neck Exam Neck Exam: Full ROM, Normal Inspection. absent: Lymphadenopathy - Respiratory Exam Respiratory Exam: Decreased Breath Sounds - Cardiovascular Exam Cardiovascular Exam: REGULAR RHYTHM, +S1, +S2 - GI/Abdominal Exam GI & Abdominal Exam: Soft, Diminished Bowel Sounds - Rectal Exam Rectal Exam: Deferred
--- NOTE | 2019-01-04 17:51 | CARD ---
APPROVED REPORT Date of service: 01/04/2019 EXAM: Two-dimensional and M-mode echocardiogram with Doppler and color Doppler. Other Information Quality : GoodRhythm : INDICATION CVA/TIA COPD cardio embolic source RISK FACTORS Hypertension Hyperlipidemia 2D DIMENSIONS IVSd1.0 (0.7-1.1cm)LVDd3.8 (3.9-5.9cm) PWd0.8 (0.7-1.1cm)LA Eyaagp35 (18-58mL) LVDs2.7 (2.5-4.0cm)FS (%) 28.4 % LVEF (%)55.5 (>50%)LVEF ([facility])51.08 % M-Mode DIMENSIONS Left Atrium (MM)3.26 (2.5-4.0cm)IVSd0.90 (0.7-1.1cm) Aortic Root2.63 (2.2-3.7cm)LVDd4.76 (4.0-5.6cm) Aortic Cusp Exc.1.81 (1.5-2.0cm)PWd0.79 (0.7-1.1cm) FS (%) 29 %LVDs3.36 (2.0-3.8cm) LVEF (%)56 (>50%) Mitral Valve MV E Hafkbzth53.9cm/sMV A Ypdjdnus856.1cm/sE/A ratio0.7 TDI Lateral E' Peak V4.80cm/sMedial E' Peak V5.51cm/sE/Lateral E'15.2 E/Medial E'13.2 Tricuspid Valve TR Peak Oxzsxtgj111gt/sTR Peak [id number] LEFT VENTRICLE The left ventricle is normal size. There is normal left ventricular wall thickness. The left ventricular systolic function is normal. The left ventricular ejection fraction is within the normal range. There is normal LV segmental wall motion. Transmitral Doppler flow pattern is Grade I-abnormal relaxation pattern. Elevated left atrial pressure. RIGHT VENTRICLE The right ventricle is normal size. The right ventricular systolic function is normal. ATRIA The left atrium size is normal. The right atrium size is normal. The interatrial septum is intact with no evidence for an atrial septal defect. AORTIC VALVE The aortic valve is slight sclerotic with normal systolic excursion. No aortic regurgitation is present. There is no aortic valvular stenosis. MITRAL VALVE The mitral valve is normal in structure. There is no mitral valve regurgitation noted. TRICUSPID VALVE The tricuspid valve is normal in structure. There is trace tricuspid regurgitation. PULMONIC VALVE The pulmonary valve is normal in structure. There is trace pulmonic valvular regurgitation. GREAT VESSELS The aortic root is normal in size. The IVC is normal in size and collapses >50% with inspiration. PERICARDIAL EFFUSION There is no pericardial effusion. <Conclusion> The left ventricular systolic function is normal. There is normal LV segmental wall motion. Grade I diastolic dysfunction - Elevated left atrial pressure. The right ventricular systolic function is normal. The aortic valve is slight sclerotic with normal systolic excursion. No regurgitation noted. There is no pericardial effusion.
[2019-01-05] MEDS: Enoxaparin 40 mg Syringe SC SCH (09:23)
--- NOTE | 2019-01-05 12:07 | PN ---
DATE: 01/05/2019 NEUROLOGICAL PROBLEM: Transient ischemic attack and possible seizures. PHYSICAL EXAMINATION: VITAL SIGNS: Blood pressure 103/70, mean artery pressure of 81, respiratory rate 18, temperature 97.9, pulse rate 82. The patient is sleepy, arousable calling her name. The patient still shows some evidence of asterixis with a sensory tremor. No focality from long-tract signs dysfunction. Rest of the examination is unchanged compared with the previous examination. LABORATORY DATA: Recent blood workup, WBC 4.6. PT 11.1, INR 1, PTT 27. Glucose 110, calcium 8.3, AST 46, alkaline phosphatase 138. RPR nonreactive. ASSESSMENT AND PLAN: The patient should have a followup visit from psychiatrist to adjust her medication. From neurological point of view, continue the present management. I will follow her electroencephalogram as well. Enrique Reyes MD
--- NOTE | 2019-01-05 14:50 | CARD ---
APPROVED REPORT Date of service: 01/03/2019 EKG Measurement Heart [id number] MD [id number] <Conclusion> Sinus tachycardia Otherwise normal ECG
--- NOTE | 2019-01-05 19:36 | CP.PCM.PN ---
Subjective - Date & Time of Evaluation Date of Evaluation: 01/05/19 Time of Evaluation: 11:15 - Subjective Subjective: clinically same Objective - Vital Signs/Intake and Output Vital Signs (last 24 hours): Temp Pulse Resp BP Pulse Ox 98.1 F 82 18 101/69 98 01/05/19 15:30 01/05/19 16:51 01/05/19 15:30 01/05/19 15:30 01/05/19 15:30 - Medications Medications: Current Medications Aspirin (Aspirin Chewable) 81 mg PO DAILY [facility] Last Admin: 01/05/19 09:31 Dose: Not Given Aspirin (Aspirin) 325 mg PO DAILY [facility] Last Admin: 01/05/19 09:23 Dose: 325 mg Benztropine Mesylate (Cogentin) 1 mg PO BID [facility] Last Admin: 01/05/19 17:39 Dose: 1 mg Clopidogrel Bisulfate (Plavix) 75 mg PO DAILY [facility] Last Admin: 01/05/19 09:23 Dose: 75 mg Docusate Sodium (Colace) 100 mg PO TID [facility] Last Admin: 01/05/19 17:38 Dose: 100 mg Enoxaparin Sodium (Lovenox) 40 mg SC DAILY [facility] Last Admin: 01/05/19 09:23 Dose: 40 mg Famotidine (Pepcid) 20 mg PO BID [facility] Last Admin: 01/05/19 17:38 Dose: 20 mg Fluoxetine HCl (Prozac) 20 mg PO DAILY [facility] Haloperidol (Haldol) 1 mg PO HS [facility] Last Admin: 01/04/19 21:36 Dose: 1 mg Losartan Potassium (Cozaar) 100 mg PO DAILY [facility] Last Admin: 01/05/19 09:23 Dose: 100 mg Ondansetron HCl (Zofran Tab) 4 mg PO BID PRN PRN Reason: Nausea/Vomiting Rosuvastatin Calcium (Crestor) 10 mg PO HS [facility] Last Admin: 01/04/19 21:36 Dose: 10 mg - Labs Labs: 01/03/19 13:59 01/03/19 13:59 PT 11.1 SECONDS (9.7-12.2) 01/03/19 13:59 INR 1.0 01/03/19 13:59 APTT 27 SECONDS (21-34) 01/03/19 13:59 - Constitutional Appears: Well - Head Exam Head Exam: ATRAUMATIC, NORMAL INSPECTION, NORMOCEPHALIC - Eye Exam Eye Exam: EOMI, Normal appearance, PERRL Pupil Exam: NORMAL ACCOMODATION, PERRL - ENT Exam ENT Exam: Mucous Membranes Moist, Normal Exam - Neck Exam Neck Exam: Full ROM, Normal Inspection. absent: Lymphadenopathy - Respiratory Exam Respiratory Exam: Decreased Breath Sounds - Cardiovascular Exam Cardiovascular Exam: REGULAR RHYTHM, +S1, +S2 - GI/Abdominal Exam GI & Abdominal Exam: Soft, Diminished Bowel Sounds - Rectal Exam Rectal Exam: Deferred
[2019-01-06 01:08] VITALS: RESP 20
[2019-01-06] MEDS: Enoxaparin 40 mg Syringe SC SCH (09:17)
--- NOTE | 2019-01-06 17:52 | CP.PCM.PN ---
Subjective - Date & Time of Evaluation Date of Evaluation: 01/06/19 Time of Evaluation: 11:00 - Subjective Subjective: clinically same Objective - Vital Signs/Intake and Output Vital Signs (last 24 hours): Temp Pulse Resp BP Pulse Ox 98.3 F 80 20 121/70 98 01/06/19 15:00 01/06/19 15:00 01/06/19 15:00 01/06/19 15:00 01/06/19 15:00 - Medications Medications: Current Medications Aspirin (Aspirin Chewable) 81 mg PO DAILY [facility] Last Admin: 01/06/19 10:00 Dose: Not Given Aspirin (Aspirin) 325 mg PO DAILY [facility] Last Admin: 01/06/19 09:17 Dose: 325 mg Benztropine Mesylate (Cogentin) 1 mg PO BID [facility] Last Admin: 01/06/19 17:27 Dose: 1 mg Clopidogrel Bisulfate (Plavix) 75 mg PO DAILY [facility] Last Admin: 01/06/19 09:17 Dose: 75 mg Docusate Sodium (Colace) 100 mg PO TID [facility] Last Admin: 01/06/19 17:27 Dose: 100 mg Enoxaparin Sodium (Lovenox) 40 mg SC DAILY [facility] Last Admin: 01/06/19 09:17 Dose: 40 mg Famotidine (Pepcid) 20 mg PO BID [facility] Last Admin: 01/06/19 17:32 Dose: 20 mg Fluoxetine HCl (Prozac) 20 mg PO DAILY [facility] Last Admin: 01/06/19 09:18 Dose: 20 mg Haloperidol (Haldol) 1 mg PO HS [facility] Last Admin: 01/05/19 21:20 Dose: 1 mg Losartan Potassium (Cozaar) 100 mg PO DAILY [facility] Last Admin: 01/06/19 09:16 Dose: 100 mg Ondansetron HCl (Zofran Tab) 4 mg PO BID PRN PRN Reason: Nausea/Vomiting Rosuvastatin Calcium (Crestor) 10 mg PO HS [facility] Last Admin: 01/05/19 21:20 Dose: 10 mg - Labs Labs: 01/03/19 13:59 01/03/19 13:59 PT 11.1 SECONDS (9.7-12.2) 01/03/19 13:59 INR 1.0 01/03/19 13:59 APTT 27 SECONDS (21-34) 01/03/19 13:59
[2019-01-07] MEDS: Enoxaparin 40 mg Syringe SC SCH (09:22)
--- NOTE | 2019-01-07 10:06 | EEG ---
DATE: 01/05/2019 This is a 16-channel electroencephalogram of awake and drowsy adult. During the study, photic stimulation was performed. Hyperventilation was not performed. The resting electroencephalogram consists of diffuse 40-60 mV moderate voltage delta activities seen in bilateral cortical leads. The slow activities continues to be noted. Some places in this activity somewhat increased to mid theta activities. Some frontal muscle artifact contaminate the background rhythm intermittently. The photic stimulation did not evoke driving response noted after 2 to 20 Hz. IMPRESSION: This is an abnormal electroencephalogram because of persistent slowing throughout the record, suggestive of bilateral cerebral dysfunction. This is probably secondary to metabolic, vascular, or degenerative process. Please correlate the findings with the neurological and radiological studies. Enrique Reyes MD
[2019-01-07 16:40] VITALS: BP 94/62; PULSE 95; TEMP 98.5; O2SAT 95
--- NOTE | 2019-01-07 19:32 | CP.PCM.PN ---
Subjective - Date & Time of Evaluation Date of Evaluation: 01/07/19 Time of Evaluation: 09:15 - Subjective Subjective: clinically same Objective - Vital Signs/Intake and Output Vital Signs (last 24 hours): Temp Pulse Resp BP Pulse Ox 98.5 F 95 H 20 94/62 L 95 01/07/19 15:00 01/07/19 16:00 01/07/19 15:00 01/07/19 15:00 01/07/19 15:00 - Medications Medications: Current Medications Aspirin (Aspirin Chewable) 81 mg PO DAILY [facility] Last Admin: 01/07/19 10:00 Dose: Not Given Aspirin (Aspirin) 325 mg PO DAILY [facility] Last Admin: 01/07/19 09:21 Dose: 325 mg Benztropine Mesylate (Cogentin) 1 mg PO BID [facility] Last Admin: 01/07/19 17:10 Dose: 1 mg Clopidogrel Bisulfate (Plavix) 75 mg PO DAILY [facility] Last Admin: 01/07/19 09:21 Dose: 75 mg Docusate Sodium (Colace) 100 mg PO TID [facility] Last Admin: 01/07/19 17:10 Dose: 100 mg Enoxaparin Sodium (Lovenox) 40 mg SC DAILY [facility] Last Admin: 01/07/19 09:22 Dose: 40 mg Famotidine (Pepcid) 20 mg PO BID [facility] Last Admin: 01/07/19 17:10 Dose: 20 mg Fluoxetine HCl (Prozac) 20 mg PO DAILY [facility] Last Admin: 01/07/19 09:23 Dose: 20 mg Haloperidol (Haldol) 1 mg PO HS [facility] Last Admin: 01/06/19 21:46 Dose: 1 mg Losartan Potassium (Cozaar) 100 mg PO DAILY [facility] Last Admin: 01/07/19 09:22 Dose: 100 mg Ondansetron HCl (Zofran Tab) 4 mg PO BID PRN PRN Reason: Nausea/Vomiting Last Admin: 01/07/19 19:00 Dose: 4 mg Rosuvastatin Calcium (Crestor) 10 mg PO HS [facility] Last Admin: 01/06/19 21:46 Dose: 10 mg - Labs Labs: 01/03/19 13:59 01/03/19 13:59 PT 11.1 SECONDS (9.7-12.2) 01/03/19 13:59 INR 1.0 01/03/19 13:59 APTT 27 SECONDS (21-34) 01/03/19 13:59
== END 2019-01-07 20:15 | DRG 832 ==
LOC: C.ER 12:48 → C.9E 14:37 → C.6T 17:31 → OBSVTOIN 01-05 14:48
PROVIDERS: ADMIT Internal Medicine Nephrology; ATTEND Internal Medicine Nephrology
DX: G45.9 Transient cerebral ischemic attack, unspecified (principal); J44.9 Chronic obstructive pulmonary disease, unspecified; I10 Essential (primary) hypertension; E78.5 Hyperlipidemia, unspecified; I25.10 Atherosclerotic heart disease of native coronary artery without angina pectoris; R29.6 Repeated falls; Z86.73 Personal history of transient ischemic attack (TIA), and cerebral infarction without residual deficits